=== PATIENT | male | born 1955 | race African-American/Black ===

== ENCOUNTER 2016-09-25 12:26 | Inpatient (IN) | payer OTHER ==
[2016-09-25 13:23] VITALS: BMI 28.7
--- NOTE | 2016-09-25 14:56 | HP ---
Admission [facility] - [facility] Chief Complaint: REHAB FOR ALCOHOL DEPENDENCE Allergies/Adverse Reactions: Allergies Allergy/AdvReac Type Severity Reaction Status Date / Time No Known Allergies Allergy Verified 09/25/16 14:49 History of Present Illness: 61 Y/O AA/MALE WITH A HX OF ALCOHOL DEPENDENCE SEEKING REHAB TX. PT STATES WAS D /C'D FROM [facility] YESTERDAY AND REFERRED HERE FOR AFTERCARE. Exam Limitations: No Limitations - Ebola screening Have you traveled outside of the country in the last 21 days: No Have you had contact with anyone from an Ebola affected area: No Have you been sick,other than usual withdrawal symptoms: No Do you have a fever: No - Review of Systems Constitutional: Changes in sleep EENT: reports: Blurred Vision (WEARS GLASSES), Dental Problems (LOOSE UPPER INCISSOR.) Respiratory: reports: No Symptoms reported Cardiac: reports: No Symptoms Reported GI: reports: No Symptoms Reported : reports: No Symptoms Reported Musculoskeletal: reports: Joint Pain (RIGHT KNEE PAIN(BRACE IN PLACE)), Muscle Pain Integumentary: reports: No Symptoms Reported Neuro: reports: Tremors, Unsteady Gait Endocrine: reports: No Symptoms Reported Hematology: reports: No Symptoms Reported Psychiatric: reports: Orientated x3 Other Systems: Reviewed and Negative Patient History - Patient Medical History Hx Anemia: No Hx Asthma: No Hx Chronic Obstructive Pulmonary Disease (COPD): No Hx Cardiac Disorders: No Hx Hypertension: Yes (ON LISINOPRIL 40 MG AND HTCZ 25 DAILY) Hx Hypercholesterolemia: Yes (BY HX) HX Cerebrovascular Accident: No Hx Seizures: No Hx Diabetes: No Hx Gastrointestinal Disorders: No Hx Genitourinary Disorders: No Hx Sexually Transmitted Disorders: No Hx Renal Disease (ESRD): No Hx Thyroid Disease: No Hx Human Immunodeficiency Virus (HIV): No (NEGATIVE HX) Hx Hepatitis C: No Hx Depression: No Hx Suicide Attempt: No (DENIES) Hx Bipolar Disorder: No Hx Schizophrenia: No - Patient Surgical History Past Surgical History: No Hx Neurologic Surgery: No Hx Cataract Extraction: No Hx Cardiac Surgery: No Hx Lung Surgery: No Hx Breast Surgery: No Hx Breast Biopsy: No Hx Abdominal Surgery: No Hx Appendectomy: No Hx Cholecystectomy: No Hx Genitourinary Surgery: No Hx Orthopedic Surgery: No Anesthesia Reaction: No - PPD History Previous Implant?: Yes ([facility]) Documented Results: Negative w/proof Implanted On Prior [facility] Admission?: No Date: 11/30/15 (AT [facility]) Results: NEGATIVE PPD to be Administered?: No - Reproductive History Patient is a Female of Child Bearing Age (11 -55 yrs old): No (MALE) - Smoking Cessation Smoking history: Current every day smoker Have you smoked in the past 12 months: Yes Aproximately how many cigarettes per day: 10 Hx Chewing Tobacco Use: No Initiated information on smoking cessation: Yes 'Breaking Loose' booklet given: 09/25/16 - Substance & Tx. History Hx Alcohol Use: Yes (VODKA) Hx Substance Use: No Substance Use Type: Alcohol Hx Substance Use Treatment: Yes - Substances Abused Alcohol Route: Oral Frequency: Daily Amount used: FIFTH Age of first use: 9 Date of Last Use: 09/19/16 Family Disease History - Family Disease History Family History: Denies Admission [facility] Exam [facility] - Vital Signs Vital Signs: Vital Signs - 24 hr 09/25/16 13:19 Temperature 98 F Pulse Rate 81 Respiratory 20 Rate Blood Pressure 174/96 - Physical General Appearance: Yes: No Apparent Distress, Anxious HEENTM: Yes: EOMI, Normocephalic, AIDEN, Pharynx Normal, Other (LOOSE TOOTH) Respiratory: Yes: Chest Non-Tender, Lungs Clear, Normal Breath Sounds, No Respiratory Distress Neck: Yes: Supple, Trachea in good position Breast: Yes: Breast Exam Deferred Cardiology: Yes: Regular Rhythm, Regular Rate, S1, S2 Abdominal: Yes: Normal Bowel Sounds, Non Tender, Soft Genitourinary: Yes: Other (N/C) Back: Yes: Within Normal Limits Musculoskeletal: Yes: full range of Motion, Gait Steady Extremities: Yes: Normal Range of Motion, Non-Tender Neurological: Yes: residential direct support professional II-XII NML intact, Fully Oriented, Alert Integumentary: Yes: Dry, Warm Lymphatic: Yes: Within Normal Limits - Diagnostic (1) Alcohol dependence with uncomplicated withdrawal Current Visit: Yes Status: Chronic (2) Hypertension Current Visit: Yes Status: Chronic Qualifiers: Hypertension type: essential hypertension Qualified Code(s): I10 - Essential (primary) hypertension (3) Cocaine dependence, uncomplicated Current Visit: Yes Status: Acute (4) Hypercholesterolemia Current Visit: Yes Status: Suspected Cleared for Admission [facility] Claeared for Rehab Admission: Yes [facility] Breath Alcohol Content Breath Alcohol Content: 0 Urine Drug Screen - Results Drug Screen Negative: No Urine Drug Screen Results: HELLEN-Cocaine, BZO-Benzodiazepines
[2016-09-25] MEDS ORDERED: MAGNESIUM HYDROX 2400MG/30ML ORAL SUSPENSION 30 ML CUP PO PRN (15:40)
[2016-09-25] MEDS ORDERED: IBUPROFEN 400 MG TABLET (FP) PO PRN (15:40)
[2016-09-25] MEDS ORDERED: hydrOXYzine PAMOATE 25 MG CAPSULE (FP) PO PRN (15:40)
[2016-09-25] MEDS ORDERED: LOPERAMIDE HCL 2 MG CAPSULE PO PRN (15:40)
[2016-09-25] MEDS ORDERED: P-EPHED 60MG/TRIPROLIDI 2.5MG TABLET PO PRN (15:40)
[2016-09-25] MEDS ORDERED: ACETAMINOPHEN 325 MG TABLET (FP) PO PRN (15:40)
[2016-09-25] MEDS ORDERED: guaiFENesin/D-METHORPHAN HB 10 ML UNIT-DOSE CUPS PO PRN (15:40)
[2016-09-25] MEDS ORDERED: MENTHOL/PHENOL 1 EACH UD MM PRN (15:40)
[2016-09-25] MEDS ORDERED: MAGNESIUM CITRATE 300 ML BOTTLE PO PRN (15:40)
[2016-09-25] MEDS ORDERED: MAG HYDROX/AL HYDROX/SIMETH 30 ML UNIT-DOSE CUP PO PRN (15:40)
[2016-09-25] MEDS ORDERED: NICOTINE POLACRILEX 2 MG GUM BUC PRN (15:40)
[2016-09-25] MEDS ORDERED: PATIENT'S OWN MEDICATION (NON-FORMULARY) (Lisinopril [Prinivil -] 40 MG) PO SCH (15:45)
[2016-09-25] MEDS ORDERED: LIDOCAINE VISCOUS 2% ORAL/TOP 20 ML UNIT-DOSE CUP MM PRN ×2 (15:55→18:51)
[2016-09-25 16:24] LABS: MCH 31.1 pg (25.7-33.7); MCHC 33.2 g/dl (32.0-35.9); MEAN CELL VOLUME 93.8 fl (80-96); MEAN PLT VOLUME 8.8 fl (7.5-11.1); PLATELET COUNT 292 K/MM3 (134-434); RDW 14.4 % (11.9-15.9); WHITE BLOOD COUNT 9.3 K/mm3 (4.0-10.0)
[2016-09-25 18:10] LABS: ALBUMIN 3.8 g/dl (3.4-5.0); ANION GAP 10 (8-16); BILIRUBIN,TOTAL 0.3 mg/dL (0.2-1.0); CALCIUM 8.6 mg/dL (8.5-10.1); CO2 26 mmol/L (21-32); CREATININE 1.2 mg/dL (0.7-1.3); GLUCOSE,RANDOM 155 mg/dL (74-106); SGOT/AST 15 U/L (15-37); TOT PROT 7.1 g/dl (6.4-8.2)
[2016-09-25 18:18] LABS: ALK PHOS 69 U/L (45-117); SGPT/ALT 18 U/L (12-78)
--- NOTE | 2016-09-25 18:51 | PN ---
[facility] Progress Note Note: received pharmacist call lidocaine 15 mg for oral
[2016-09-25] MEDS ORDERED: LISINOPRIL 20 MG TABLET (FP) PO SCH (19:30)
[2016-09-25] MEDS: HYDROCHLOROTHIAZIDE 25 MG TABLET (FP) PO SCH (19:41)
[2016-09-25] MEDS: NICOTINE 14 MG/24 HOURS TOPICAL PATCH TD SCH (19:42)
[2016-09-25] MEDS: LISINOPRIL 20 MG TABLET (FP) PO SCH (19:54)
[2016-09-25] MEDS: NAPROXEN 500 MG TABLET (FP) PO SCH (22:41)
[2016-09-25] MEDS: THIAMINE HCL 100 MG TABLET (FP) PO SCH (22:41)
--- NOTE | 2016-09-26 06:21 | HP ---
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 Smokes 10 cigarettes daily Psychiatric History: Denies history of previous psychiatric treatment Physical/Sexual Abuse/Trauma History: Denies history of physical, sexual abuse as well as DV relationship Additional Comment: Denies criminal history Vital Signs: Vital Signs - 24 hr 09/25/16 09/26/16 13:19 00:30 Temperature 98 F Pulse Rate 81 Respiratory 20 16 Rate Blood Pressure 174/96 Allergies/Adverse Reactions: Allergies Allergy/AdvReac Type Severity Reaction Status Date / Time No Known Allergies Allergy Verified 09/25/16 14:49 Date of last physical exam: 09/25/16 Concur with the findings of this exam: Yes - Substance Abuse/Tx History Hx Alcohol Use: Yes Hx Substance Use: No Substance Use Type: Alcohol (Started drinking alcohol at age 9, consumes a fifth of liquor daily. Last drink on 09/19/16) Hx Substance Use Treatment: Yes (recent inpt detox at [facility]. First inpt rehab) - Admission Criteria Previous failed treatment: No Poor recovery environment: Yes Comorbidities: Yes Lacks judgement: Yes Mental Status Exam - Mental Status Exam Alert and Oriented to: Time, Place, Person Cognitive Function: Fair Patient Appearance: Well Groomed Mood: Hopeful, Euthymic Patient Behavior: Cooperative Speech Pattern: Clear Voice Loudness: Normal Thought Process: Intact Thought Disorder: Not Present Hallucinations: Denies Suicidal Ideation: Denies Homicidal Ideation: Denies Insight/Judgement: Fair Sleep: Poorly Appetite: Good Muscle strength/Tone: Normal Gait/Station: Normal Psychiatric Findings - Problem List (Salome 1, 2,3) (1) Alcohol dependence with uncomplicated withdrawal Current Visit: Yes Status: Chronic (2) Nicotine dependence Current Visit: Yes Status: Acute (3) Alcohol-induced sleep disorder Current Visit: Yes Status: Acute (4) Hypertension Current Visit: Yes Status: Chronic Qualifiers: Hypertension type: essential hypertension Qualified Code(s): I10 - Essential (primary) hypertension (5) Hypercholesterolemia Current Visit: Yes Status: Suspected - Initial Treatment Plan Initial Treatment Plan: 1) Start Trazadone 100 mg po HS for insomnia. 2) Monitor progress
[2016-09-26] MEDS: HYDROCHLOROTHIAZIDE 25 MG TABLET (FP) PO SCH (09:41)
[2016-09-26] MEDS: NICOTINE 14 MG/24 HOURS TOPICAL PATCH TD SCH (09:41)
[2016-09-26] MEDS: LISINOPRIL 20 MG TABLET (FP) PO SCH (09:41)
[2016-09-26] MEDS: PRENATAL VITAMINS W/ FOLIC ACID TABLET (FP) PO SCH (09:41)
[2016-09-26] MEDS: NAPROXEN 500 MG TABLET (FP) PO SCH ×2 (09:41→21:30)
[2016-09-26 11:05] LABS: HIV 1 & 2 AB NEGATIVE; HIV 1 AGp24 NEGATIVE
[2016-09-26] MEDS: THIAMINE HCL 100 MG TABLET (FP) PO SCH (21:30)
[2016-09-26] MEDS: traZODone HCL 100 MG TABLET (FP) PO SCH (21:30)
--- NOTE | 2016-09-26 23:35 | EKG ---
Test Reason : Blood Pressure : / mmHG Vent. Rate : 077 BPM Atrial Rate : 077 BPM P-R Int : 156 ms QRS Dur : 082 ms QT Int : 402 ms P-R-T Axes : 067 038 056 degrees QTc Int : 454 ms NORMAL SINUS RHYTHM VOLTAGE CRITERIA FOR LEFT VENTRICULAR HYPERTROPHY ABNORMAL ECG NO PREVIOUS ECGS AVAILABLE Confirmed by MOE ROMERO, TONY ([id number]) on 09/26/2016 11:34:58 PM Referred By: Quin Gonzalez Confirmed By:TONY ROSA MD
[2016-09-27] MEDS: LISINOPRIL 20 MG TABLET (FP) PO SCH (09:45)
[2016-09-27] MEDS: NAPROXEN 500 MG TABLET (FP) PO SCH ×2 (09:45→22:11)
[2016-09-27] MEDS: PRENATAL VITAMINS W/ FOLIC ACID TABLET (FP) PO SCH (09:45)
[2016-09-27] MEDS: NICOTINE 14 MG/24 HOURS TOPICAL PATCH TD SCH (09:45)
[2016-09-27] MEDS: HYDROCHLOROTHIAZIDE 25 MG TABLET (FP) PO SCH (09:45)
[2016-09-27 20:36] LABS: URINE APPEARANCE CLEAR; URINE BILIRUBIN NEGATIVE (NEGATIVE); URINE BLOOD NEGATIVE (NEGATIVE); URINE COLOR YELLOW; URINE GLUCOSE (UA) 1+ (NEGATIVE); URINE KETONE NEGATIVE (NEGATIVE); URINE LEUK ESTERASE NEGATIVE (NEGATIVE); URINE NITRITE NEGATIVE (NEGATIVE); URINE PROTEIN NEGATIVE (NEGATIVE); URINE UROBILINOGEN NEGATIVE E.U./dl (0.2-1.0)
[2016-09-27] MEDS: THIAMINE HCL 100 MG TABLET (FP) PO SCH (22:10)
[2016-09-27] MEDS: diphenhydrAMINE HCL 50 MG CAPSULE PO PRN (22:10)
[2016-09-27] MEDS: traZODone HCL 100 MG TABLET (FP) PO SCH (22:11)
[2016-09-28] MEDS: NAPROXEN 500 MG TABLET (FP) PO SCH ×2 (10:25→22:10)
[2016-09-28] MEDS: LISINOPRIL 20 MG TABLET (FP) PO SCH (10:25)
[2016-09-28] MEDS: PRENATAL VITAMINS W/ FOLIC ACID TABLET (FP) PO SCH (10:25)
[2016-09-28] MEDS: HYDROCHLOROTHIAZIDE 25 MG TABLET (FP) PO SCH (10:25)
[2016-09-28] MEDS: NICOTINE 14 MG/24 HOURS TOPICAL PATCH TD SCH (10:25)
[2016-09-28] MEDS: diphenhydrAMINE HCL 50 MG CAPSULE PO PRN (22:06)
[2016-09-28] MEDS: traZODone HCL 100 MG TABLET (FP) PO SCH (22:09)
[2016-09-28] MEDS: THIAMINE HCL 100 MG TABLET (FP) PO SCH (22:10)
[2016-09-29 05:55] VITALS: TEMP 98.6
--- NOTE | 2016-09-29 09:23 | PN ---
Psychiatric Progress Note Vital Signs: Vital Signs Period Temp Pulse Resp BP Sys/Cantor Pulse Ox Last 24 Hr 98.6 F-98.6 F 81-91 18-18 146-153/89-92 Date of Session: 09/29/16 Chief Complaint:: AMA Discharge Note HPI: Patient addressing Alcohol Dependence comorbid with Nicotine Dependence and Alcohol-Induced Sleep Disorder ROS: HTN, Hyperlipidemiaa were medically managed Current Medications: Active Medications Generic Name Dose Route Start Last Admin Trade Name Freq PRN Reason Stop Dose Admin Acetaminophen 650 mg 09/25/16 15:40 Tylenol - PO Q4H PRN PAIN Al Hydroxide/Mg Hydroxide 30 ml 09/25/16 15:40 Mylanta Oral Suspension - PO Q6H PRN DYSPEPSIA Diphenhydramine HCl 50 mg 09/25/16 22:00 09/28/16 22:06 Benadryl - PO 50 mg HSMR1 PRN Administration INSOMNIA Eucalyptus/Menthol/Phenol/Sorbitol 1 each 09/25/16 15:40 Cepastat Lozenge - MM Q4H PRN SORE THROAT Guaifenesin 10 ml 09/25/16 15:40 Robitussin Dm - PO Q6H PRN COUGH Hydrochlorothiazide 25 mg 09/25/16 17:15 09/28/16 10:25 Hctz - PO 25 mg DAILY TESSA Administration Hydroxyzine Pamoate 25 mg 09/25/16 15:40 Vistaril - PO Q4H PRN AGITATION Lidocaine HCl 15 ml 09/25/16 18:51 Xylocaine 2% Viscous Oral - MM Q4H PRN ORAL PAIN/MOUTH SORES Lisinopril 40 mg 09/25/16 20:00 09/28/16 10:25 Prinivil PO 40 mg DAILY TESSA Administration Loperamide HCl 4 mg 09/25/16 15:40 Imodium - PO Q6H PRN DIARRHEA Magnesium Citrate 300 ml 09/25/16 15:40 Citroma - PO Q48H PRN CONSTIPATION Magnesium Hydroxide 30 ml 09/25/16 15:40 Milk Of Magnesia - PO DAILY PRN CONSTIPATION Naproxen 500 mg 09/25/16 22:00 09/28/16 22:10 Naprosyn - PO Not Given BID TESSA Nicotine 14 mg 09/25/16 15:45 09/28/16 10:25 Nicoderm Patch - TD 14 mg DAILY TESSA Administration Nicotine Polacrilex 2 mg 09/25/16 15:40 Nicorette Gum - BUC Q2H PRN NICOTINE REPLACEMENT RX Multivit/Folic Acid/Iron 1 tab 09/26/16 10:00 09/28/16 10:25 Vitamins ([facility]) - PO 1 tab DAILY TESSA Administration Pseudoephedrine/Triprolidine 1 combo 09/25/16 15:40 Actifed - PO TID PRN NASAL CONGESTION Thiamine HCl 100 mg 09/25/16 22:00 09/28/16 22:10 Vitamin B1 - PO Not Given HS TESSA Trazodone HCl 100 mg 09/26/16 22:00 09/28/16 22:09 Desyrel - PO Not Given HS TESSA Current Side Effect: No Lab tests ordered: Yes Lab tests reviewed: Yes Provider note:: Patient requests to leave against medical advice citing family emergency. Reports that he received news that his father is gravely ill in [place] and he has to fly there today. Told expert medical writer that when he comes back, he will check in here to complete his rehab. He is stable for discharge today against medical advice Total face to face time:: 25 Mental Status Exam - Mental Status Exam Alert and Oriented to: Time, Place, Person Cognitive Function: Fair Patient Appearance: Well Groomed Mood: Hopeful, Euthymic Affect: Appropriate Patient Behavior: Cooperative Speech Pattern: Clear Voice Loudness: Normal Thought Process: Intact Thought Disorder: Not Present Hallucinations: Denies Suicidal Ideation: Denies Homicidal Ideation: Denies Insight/Judgement: Poor Sleep: Fair Appetite: Good Muscle strength/Tone: Normal Gait/Station: Normal Psychiatric Treatment Plan - Problem List (1) Alcohol dependence with uncomplicated withdrawal Current Visit: Yes (2) Nicotine dependence Current Visit: Yes (3) Alcohol-induced sleep disorder Current Visit: Yes (4) Hypertension Current Visit: Yes Qualifiers: Hypertension type: essential hypertension Qualified Code(s): I10 - Essential (primary) hypertension (5) Hypercholesterolemia Current Visit: Yes Initial treatment plan: Patient is leaving [facility]
[2016-09-29] MEDS: HYDROCHLOROTHIAZIDE 25 MG TABLET (FP) PO SCH (09:46)
[2016-09-29] MEDS: NAPROXEN 500 MG TABLET (FP) PO SCH (09:46)
[2016-09-29] MEDS: LISINOPRIL 20 MG TABLET (FP) PO SCH (09:46)
[2016-09-29] MEDS ORDERED: PT OWN MED DRAWER 7, Y5N ONE (09:49)
[2016-09-29 10:40] VITALS: BP 128/82; PULSE 88
== END 2016-09-29 09:50 | disposition left against medical advice (07) | DRG 770 ==
LOC: YASAS 12:26 → Y3W 16:22
PROVIDERS: ADMIT Psychiatry & Neurology Psychiatry; ATTEND Psychiatry & Neurology Psychiatry
PROC: HZ42ZZZ Group Counseling for Substance Abuse Treatment, Cognitive-Behavioral (ICD-10-PCS; principal; 2016-09-29)
DX: F10.230 Alcohol dependence with withdrawal, uncomplicated (principal); F17.210 Nicotine dependence, cigarettes, uncomplicated; F10.282 Alcohol dependence with alcohol-induced sleep disorder; I10 Essential (primary) hypertension; E78.00 Pure hypercholesterolemia, unspecified
CPT/HCPCS: 36415; 80053; 81003; 85027; 85660; 86593; 87389; 93005; 93010

== ENCOUNTER 2017-01-12 11:15 | Inpatient (IN) | payer OTHER ==
[2017-01-12 17:53] VITALS: BMI 26.1
--- NOTE | 2017-01-12 19:06 | HP ---
COWS - Scale Resting Pulse: 0= NE 80 or Below Sweatin= Chills/Flushing Restless Observation: 3= Extraneous Movement Pupil Size: 0= Normal to Room Light Bone or Joint Aches: 2= Severe Diffuse Aches Runny Nose/ Eye Tearin= Nasal Congestion GI Upset > 30mins: 1= Stomach Cramp Tremor Observation: 2= Slight Tremor Visible Yawning Observation: 1= 1-2x During Session Anxiety or Irritability: 2=Irritable/Anxious Goose Flesh Skin: 0=Smooth Skin COWS Score: 13 Admission ROS S - [facility] Chief Complaint: WITHDRAWAL SX Allergies/Adverse Reactions: Allergies Allergy/AdvReac Type Severity Reaction Status Date / Time No Known Allergies Allergy Verified 01/12/17 18:32 History of Present Illness: 61 YEARS OLD MALE WITH LONG HISTORY OF OPIOID COCAINE NICOTINE DEPENDENCE, HAS HYPERTENSION, DENIES MENTAL ILLNESS IS ADMITTED TO DETOX Exam Limitations: No Limitations - Ebola screening Have you traveled outside of the country in the last 21 days: No Have you had contact with anyone from an Ebola affected area: No Have you been sick,other than usual withdrawal symptoms: No Do you have a fever: No - Review of Systems Constitutional: Chills, Changes in sleep, Weight Stable EENT: reports: No Symptoms Reported Respiratory: reports: No Symptoms reported Cardiac: reports: No Symptoms Reported GI: reports: Nausea, Poor Fluid Intake, Abdominal cramping : reports: No Symptoms Reported Musculoskeletal: reports: Back Pain, Joint Pain, Muscle Pain, Neck Pain Integumentary: reports: No Symptoms Reported Neuro: reports: Tremors Endocrine: reports: No Symptoms Reported Hematology: reports: No Symptoms Reported Psychiatric: reports: Judgement Intact, Mood/Affect Appropiate, Orientated x3 Other Systems: Reviewed and Negative Patient History - Patient Medical History Hx Anemia: No Hx Asthma: No Hx Chronic Obstructive Pulmonary Disease (COPD): No Hx Cancer: No Hx Cardiac Disorders: No Hx Congestive Heart Failure: No Hx Hypertension: Yes (ON LISINOPRIL 40 MG AND HTCZ 25 DAILY) Hx Hypercholesterolemia: No (BY HX) Hx Pacemaker: No HX Cerebrovascular Accident: No Hx Seizures: No Hx Dementia: No Hx Diabetes: No Hx Gastrointestinal Disorders: No Hx Liver Disease: No Hx Genitourinary Disorders: No Hx Sexually Transmitted Disorders: No Hx Renal Disease (ESRD): No Hx Thyroid Disease: No Hx Human Immunodeficiency Virus (HIV): No (NEGATIVE HX) Hx Hepatitis C: No Hx Depression: Yes (PROZAC) Hx Suicide Attempt: No (DENIES) Hx Bipolar Disorder: No Hx Schizophrenia: No - Patient Surgical History Past Surgical History: No Hx Neurologic Surgery: No Hx Cataract Extraction: No Hx Cardiac Surgery: No Hx Lung Surgery: No Hx Breast Surgery: No Hx Breast Biopsy: No Hx Abdominal Surgery: No Hx Appendectomy: No Hx Cholecystectomy: No Hx Genitourinary Surgery: No Hx Orthopedic Surgery: No - PPD History Previous Implant?: Yes Documented Results: Negative w/proof Implanted On Prior [facility] Admission?: No Date: 11/30/15 Results: NEGATIVE PPD to be Administered?: Yes - Smoking Cessation Smoking history: Current every day smoker Have you smoked in the past 12 months: Yes Aproximately how many cigarettes per day: 20 Cigars Per Day: 0 Hx Chewing Tobacco Use: No Initiated information on smoking cessation: Yes 'Breaking Loose' booklet given: 01/12/17 - Substance & Tx. History Hx Alcohol Use: No Hx Substance Use: Yes Substance Use Type: Cocaine, Opiates Hx Substance Use Treatment: Yes - Substances Abused Percocets Route: Oral Frequency: Daily Amount used: 60mg Age of first use: 50 Date of Last Use: 01/12/17 Family Disease History - Family Disease History Family History: Unable to Obtain (PATIENT REFUSED TO ANSWER) Admission Physical Exam [facility] - Vital Signs Vital Signs: Vital Signs - 24 hr 01/12/17 17:50 Temperature 97.2 F L Pulse Rate 75 Respiratory 20 Rate Blood Pressure 148/82 - Physical General Appearance: Yes: Nourished, Appropriately Dressed, Mild Distress, Tremorous, Irritable, Sweating, Anxious HEENTM: Yes: Hearing grossly Normal, Normal ENT Inspection, Normocephalic, Normal Voice Respiratory: Yes: Chest Non-Tender, Lungs Clear, Normal Breath Sounds, No Respiratory Distress, No Accessory Muscle Use Neck: Yes: Supple, Trachea in good position Breast: Yes: Breasts Symetrical Cardiology: Yes: Regular Rhythm, Regular Rate, S1, S2 Abdominal: Yes: Non Tender, Soft Genitourinary: Yes: Within Normal Limits Back: Yes: Normal Inspection Musculoskeletal: Yes: full range of Motion, Gait Steady, Back pain, Muscle Pain Extremities: Yes: Normal Inspection, Normal Range of Motion, Non-Tender, Tremors Neurological: Yes: Fully Oriented, Alert, Motor Strength 5/5, Normal Response, Depressed Affect Integumentary: Yes: Warm Lymphatic: Yes: Within Normal Limits - Diagnostic (1) Cocaine dependence, uncomplicated Current Visit: Yes Status: Chronic (2) Nicotine dependence Current Visit: Yes Status: Acute Qualifiers: Nicotine product type: cigarettes Substance use status: in withdrawal Qualified Code(s): F17.213 - Nicotine dependence, cigarettes, with withdrawal (3) Hypertension Current Visit: Yes Status: Chronic Qualifiers: Hypertension type: essential hypertension Qualified Code(s): I10 - Essential (primary) hypertension (4) Depression (emotion) Current Visit: Yes Status: Suspected Qualifiers: Depression Type: dysthymia Qualified Code(s): F34.1 - Dysthymic disorder Comment: LIZETT Cleared for Admission [facility] - Detox or Rehab [facility] Level of Care: Medically Managed Detox Regimen/Protocol: Methadone [facility] Breath Alcohol Content Breath Alcohol Content: 0 Urine Drug Screen - Results Drug Screen Negative: No Urine Drug Screen Results: HELLEN-Cocaine, OPI-Opiates
[2017-01-12] MEDS ORDERED: IBUPROFEN 400 MG TABLET (FP) PO PRN (19:08)
[2017-01-12] MEDS ORDERED: diphenhydrAMINE HCL 50 MG CAPSULE PO PRN (19:08)
[2017-01-12] MEDS ORDERED: MAG HYDROX/AL HYDROX/SIMETH 30 ML UNIT-DOSE CUP PO PRN (19:08)
[2017-01-12] MEDS ORDERED: LOPERAMIDE HCL 2 MG CAPSULE PO PRN (19:08)
[2017-01-12] MEDS ORDERED: MAGNESIUM HYDROX 2400MG/30ML ORAL SUSPENSION 30 ML CUP PO PRN (19:08)
[2017-01-12] MEDS ORDERED: ACETAMINOPHEN 325 MG TABLET (FP) PO PRN (19:08)
[2017-01-12] MEDS ORDERED: MENTHOL/PHENOL 1 EACH UD MM PRN (19:08)
[2017-01-12] MEDS ORDERED: MAGNESIUM CITRATE 300 ML BOTTLE PO PRN (19:08)
[2017-01-12] MEDS ORDERED: guaiFENesin/D-METHORPHAN HB 10 ML UNIT-DOSE CUPS PO PRN (19:08)
[2017-01-12] MEDS ORDERED: P-EPHED 60MG/TRIPROLIDI 2.5MG TABLET PO PRN (19:08)
[2017-01-12] MEDS ORDERED: METHADONE HCL 10 MG TABLET (FOR DETOX USE ONLY) PO ONE ×2 (19:08→23:00)
[2017-01-12] MEDS ORDERED: METHADONE HCL 10 MG TABLET (FOR DETOX USE ONLY) ONE (21:21)
[2017-01-12] MEDS: diazePAM 5 MG TABLET PO PRN (21:40)
[2017-01-12] MEDS: THIAMINE HCL 100 MG TABLET (FP) PO SCH (21:40)
[2017-01-12] MEDS: NICOTINE POLACRILEX 4 MG GUM BC PRN (21:45)
[2017-01-12 23:52] LABS: URINE APPEARANCE CLEAR; URINE BILIRUBIN NEGATIVE (NEGATIVE); URINE BLOOD NEGATIVE (NEGATIVE); URINE COLOR YELLOW; URINE GLUCOSE (UA) NEGATIVE (NEGATIVE); URINE KETONE NEGATIVE (NEGATIVE); URINE LEUK ESTERASE NEGATIVE (NEGATIVE); URINE NITRITE NEGATIVE (NEGATIVE); URINE PROTEIN NEGATIVE (NEGATIVE); URINE UROBILINOGEN NEGATIVE E.U./dl (0.2-1.0)
[2017-01-13 09:59] LABS: MCH 32.7 pg (25.7-33.7); MEAN CELL VOLUME 96.2 fl (80-96); MEAN PLT VOLUME 9.3 fl (7.5-11.1); PLATELET COUNT 224 K/MM3 (134-434)
[2017-01-13] MEDS ORDERED: METHADONE HCL 10 MG TABLET (FOR DETOX USE ONLY) PO ONE (10:00)
--- NOTE | 2017-01-13 10:25 | CONSULT ---
[facility] Psychiatric Consult - Data Date of interview: 01/13/17 Admission source: [facility] Identifying data: Readmission to [facility] for this 61 y/o AA male seeking detox treatment for opiate and cocaine dependence.Patient is ,a father of two,domiciled,retired and supported on his pension benefits. Substance Abuse History: - Smoking Cessation. Smoking history: Current every day smoker. Have you smoked in the past 12 months: Yes. Aproximately how many cigarettes per day: 20. Cigars Per Day: 0. Hx Chewing Tobacco Use: No. Initiated information on smoking cessation: Yes. 'Breaking Loose' booklet given : 01/12/17. - Substance & Tx. History. Hx Alcohol Use: No. Hx Substance Use: Yes. Substance Use Type: Cocaine, Opiates. Hx Substance Use Treatment: Yes. - Substances Abused. Percocets. Route: Oral. Frequency: Daily. Amount used: 60mg. Age of first use: 50. Date of Last Use: 01/12/17. Confirmed by patient. Medical History: Hypertension,dyslipidemia,lower back pain and a history of right knee replacement. Psychiatric History: No history of psychiatric hospitalizations.Patient reports that he was seeing a private psychiatrist to address issue of anxiety.Prescribed klonopin and xanax.Mr Torres denies history of suicide attempts. Physical/Sexual Abuse/Trauma History: Patient denies. Additional Comment: Urine Drug Screen Results: HELLEN-Cocaine, OPI-Opiates.Noted. Mental Status Exam - Mental Status Exam Alert and Oriented to: Time, Place, Person Cognitive Function: Good Patient Appearance: Well Groomed Mood: Hopeful, Euthymic Affect: Appropriate, Normal Range Patient Behavior: Appropriate, Cooperative Speech Pattern: Clear, Appropriate Voice Loudness: Normal Thought Process: Goal Oriented Thought Disorder: Not Present Hallucinations: Denies Suicidal Ideation: Denies Homicidal Ideation: Denies Insight/Judgement: Poor Sleep: Well Appetite: Good Muscle strength/Tone: Normal Gait/Station: Normal Psychiatric Findings - Problem List ([place] 1, 2,3) (1) Opioid dependence with withdrawal Current Visit: Yes Status: Acute (2) Cocaine dependence, uncomplicated Current Visit: Yes Status: Acute (3) Nicotine dependence Current Visit: Yes Status: Acute Qualifiers: Nicotine product type: cigarettes Substance use status: in withdrawal Qualified Code(s): F17.213 - Nicotine dependence, cigarettes, with withdrawal (4) Substance induced mood disorder Current Visit: Yes Status: Acute (5) Hypertension Current Visit: Yes Status: Chronic Qualifiers: Hypertension type: essential hypertension Qualified Code(s): I10 - Essential (primary) hypertension (6) Hypercholesterolemia Current Visit: Yes Status: Chronic - Initial Treatment Plan Initial Treatment Plan: Psychoeducation.Detoxification.Observation.
[2017-01-13 10:33] LABS: ALK PHOS 67 U/L (45-117); BILIRUBIN,TOTAL 0.5 mg/dL (0.2-1.0); CALCIUM 8.8 mg/dL (8.5-10.1); CO2 25 mmol/L (21-32); COCKROFT - GAULT 62.02; CREATININE 1.3 mg/dL (0.7-1.3); GLUCOSE,RANDOM 136 mg/dL (74-106); SGOT/AST 19 U/L (15-37); SGPT/ALT 21 U/L (12-78); TOT PROT 7.3 g/dl (6.4-8.2)
[2017-01-13] MEDS: PRENATAL VITAMINS W/ FOLIC ACID TABLET (FP) PO SCH (10:41)
[2017-01-13] MEDS: LISINOPRIL 20 MG TABLET (FP) PO SCH (10:41)
[2017-01-13] MEDS: HYDROCHLOROTHIAZIDE 25 MG TABLET (FP) PO SCH (10:42)
[2017-01-13] MEDS: NICOTINE 21 MG/24 HOURS TOPICAL PATCH TD SCH (10:50)
[2017-01-13] MEDS: diazePAM 5 MG TABLET PO PRN ×2 (10:51→22:14)
--- NOTE | 2017-01-13 12:19 | EKG ---
Test Reason : Blood Pressure : / mmHG Vent. Rate : 063 BPM Atrial Rate : 063 BPM P-R Int : 140 ms QRS Dur : 080 ms QT Int : 416 ms P-R-T Axes : 068 045 057 degrees QTc Int : 425 ms NORMAL SINUS RHYTHM MODERATE VOLTAGE CRITERIA FOR LVH, MAY BE NORMAL VARIANT BORDERLINE ECG WHEN COMPARED WITH ECG OF 25-SEP-2016 23:11, NO SIGNIFICANT CHANGE WAS FOUND Confirmed by MD JESSE, TRAM ([id number]) on 01/13/2017 12:18:59 PM Referred By: Confirmed By:TRAM MOLINA MD
--- NOTE | 2017-01-13 13:12 | PN ---
[facility] COWS - Scale Resting Pulse: 0= MI 80 or Below Sweatin=Flushed/Facial Moisture Restless Observation: 3= Extraneous Movement Pupil Size: 1= Pupils >than Normal Bone or Joint Aches: 2= Severe Diffuse Aches Runny Nose/ Eye Tearin= Runny Nose/Eyes GI Upset > 30mins: 3= Vomiting/Diarrhea Tremor Observation of Outstretched Hands: 2= Slight Tremor Visible Yawning Observation: 1= 1-2x During Session Anxiety or Irritability: 2=Irritable/Anxious Goose Flesh Skin: 0=Smooth Skin COWS Score: 18 BHS Progress Note (SOAP) Subjective: ALERT,IRRITABLE,ANXIOUS,INTERRUPTED SLEEP,TREMOR,PAIN IN THE BODY AND BACK Objective: 01/13/17 13:10 Vital Signs Temperature 97.3 F L 01/13/17 10:00 Pulse Rate 67 01/13/17 10:00 Respiratory Rate 18 01/13/17 10:00 Blood Pressure 150/80 01/13/17 10:00 O2 Sat by Pulse Oximetry (%) EKG NSR,LVH NO CHEST PAIN,NO SOB,NO DIZZINESS Laboratory Last Values WBC 8.0 K/mm3 (4.0-10.0) 01/13/17 06:00 RBC 3.99 M/mm3 (4.00-5.60) L 01/13/17 06:00 Hgb 13.0 GM/dL (11.7-16.9) 01/13/17 06:00 Hct 38.4 % (35.4-49) 01/13/17 06:00 MCV 96.2 fl (80-96) H 01/13/17 06:00 MCHC 34.0 g/dl (32.0-35.9) 01/13/17 06:00 RDW 14.0 % (11.9-15.9) 01/13/17 06:00 Plt Count 224 K/MM3 (134-434) D 01/13/17 06:00 MPV 9.3 fl (7.5-11.1) 01/13/17 06:00 Sodium 142 mmol/L (136-145) 01/13/17 06:00 Potassium 3.9 mmol/L (3.5-5.1) 01/13/17 06:00 Chloride 108 mmol/L (98-107) H 01/13/17 06:00 Carbon Dioxide 25 mmol/L (21-32) 01/13/17 06:00 Anion Gap Y 01/13/17 06:00 BUN 17 mg/dL (7-18) 01/13/17 06:00 Creatinine 1.3 mg/dL (0.7-1.3) 01/13/17 06:00 Creat Clearance w eGFR 56.12 (>60) 01/13/17 06:00 Random Glucose 136 mg/dL (74-106) H 01/13/17 06:00 Calcium 8.8 mg/dL (8.5-10.1) 01/13/17 06:00 Total Bilirubin 0.5 mg/dL (0.2-1.0) D 01/13/17 06:00 AST 19 U/L (15-37) D 01/13/17 06:00 ALT 21 U/L (12-78) 01/13/17 06:00 Alkaline Phosphatase 67 U/L (45-117) 01/13/17 06:00 Total Protein 7.3 g/dl (6.4-8.2) 01/13/17 06:00 Albumin 4.0 g/dl (3.4-5.0) 01/13/17 06:00 Urine Color Yellow 01/12/17 23:40 Urine Appearance Clear 01/12/17 23:40 Urine pH 5.0 (5.0-8.0) 01/12/17 23:40 Ur Specific [place] 1.025 (1.005-1.025) 01/12/17 23:40 Urine Protein Negative (NEGATIVE) 01/12/17 23:40 Urine Glucose (UA) Negative (NEGATIVE) 01/12/17 23:40 Urine Ketones Negative (NEGATIVE) 01/12/17 23:40 Urine Blood Negative (NEGATIVE) 01/12/17 23:40 Urine Nitrite Negative (NEGATIVE) 01/12/17 23:40 Urine Bilirubin Negative (NEGATIVE) 01/12/17 23:40 Urine Urobilinogen Negative E.U./dl (0.2-1.0) 01/12/17 23:40 Ur Leukocyte Esterase Negative (NEGATIVE) 01/12/17 23:40 RPR Titer Nonreactive (NONREACTIVE) 01/13/17 06:00 Assessment: 01/13/17 13:11 WITHDRAWAL SYMPTOM Plan: CONTINUE DETOX
[2017-01-13] MEDS: THIAMINE HCL 100 MG TABLET (FP) PO SCH (22:14)
[2017-01-14] MEDS: NICOTINE POLACRILEX 4 MG GUM BC PRN ×3 (04:46→11:19)
[2017-01-14] MEDS: diazePAM 5 MG TABLET PO PRN ×3 (05:05→22:11)
[2017-01-14] MEDS ORDERED: METHADONE HCL 5 MG TABLET (FOR DETOX USE ONLY) PO ONE (10:00)
[2017-01-14] MEDS: LISINOPRIL 20 MG TABLET (FP) PO SCH (11:00)
[2017-01-14] MEDS: HYDROCHLOROTHIAZIDE 25 MG TABLET (FP) PO SCH (11:00)
[2017-01-14] MEDS: PRENATAL VITAMINS W/ FOLIC ACID TABLET (FP) PO SCH (11:00)
[2017-01-14] MEDS: NICOTINE 21 MG/24 HOURS TOPICAL PATCH TD SCH (11:19)
--- NOTE | 2017-01-14 12:12 | PN ---
[facility] CIWA - CIWA Score Nausea/Vomitin Muscle Tremors: 3 Anxiety: 2 Agitation: 2 Paroxysmal Sweats: 1-Minimal Palms Moist Orientation: 0-Oriented Tacttile Disturbances: 1-Very Mild Itch/Numbness Auditory Disturbances: 1-Very Mild Visual Disturbances: 1-Very Mild Sensitivity Headache: 2-Mild CIWA-Ar Total Score: 16 [facility] COWS - Scale Resting Pulse: 0= [place] 80 or Below Sweatin= Chills/Flushing Restless Observation: 3= Extraneous Movement Pupil Size: 1= Pupils >than Normal Bone or Joint Aches: 2= Severe Diffuse Aches Runny Nose/ Eye Tearin= Runny Nose/Eyes GI Upset > 30mins: 2= Nausea/Diarrhea Tremor Observation of Outstretched Hands: 2= Slight Tremor Visible Yawning Observation: 1= 1-2x During Session Anxiety or Irritability: 2=Irritable/Anxious Goose Flesh Skin: 0=Smooth Skin COWS Score: 16 [facility] Progress Note (SOAP) Subjective: ALERT,IRRITABLE,ANXIOUS,INTERRUPTED SLEEP,TREMOR,PAIN IN THE BODY AND BACK Objective: 01/14/17 12:10 Vital Signs Temperature 98.1 F 01/14/17 09:43 Pulse Rate 78 01/14/17 09:43 Respiratory Rate 18 01/14/17 09:43 Blood Pressure 161/87 01/14/17 09:43 O2 Sat by Pulse Oximetry (%) Laboratory Last Values WBC 8.0 K/mm3 (4.0-10.0) 01/13/17 06:00 RBC 3.99 M/mm3 (4.00-5.60) L 01/13/17 06:00 Hgb 13.0 GM/dL (11.7-16.9) 01/13/17 06:00 Hct 38.4 % (35.4-49) 01/13/17 06:00 MCV 96.2 fl (80-96) H 01/13/17 06:00 MCHC 34.0 g/dl (32.0-35.9) 01/13/17 06:00 RDW 14.0 % (11.9-15.9) 01/13/17 06:00 Plt Count 224 K/MM3 (134-434) D 01/13/17 06:00 MPV 9.3 fl (7.5-11.1) 01/13/17 06:00 Sodium 142 mmol/L (136-145) 01/13/17 06:00 Potassium 3.9 mmol/L (3.5-5.1) 01/13/17 06:00 Chloride 108 mmol/L (98-107) H 01/13/17 06:00 Carbon Dioxide 25 mmol/L (21-32) 01/13/17 06:00 Anion Gap Y 01/13/17 06:00 BUN 17 mg/dL (7-18) 01/13/17 06:00 Creatinine 1.3 mg/dL (0.7-1.3) 01/13/17 06:00 Creat Clearance w eGFR 56.12 (>60) 01/13/17 06:00 Random Glucose 136 mg/dL (74-106) H 01/13/17 06:00 Calcium 8.8 mg/dL (8.5-10.1) 01/13/17 06:00 Total Bilirubin 0.5 mg/dL (0.2-1.0) D 01/13/17 06:00 AST 19 U/L (15-37) D 01/13/17 06:00 ALT 21 U/L (12-78) 01/13/17 06:00 Alkaline Phosphatase 67 U/L (45-117) 01/13/17 06:00 Total Protein 7.3 g/dl (6.4-8.2) 01/13/17 06:00 Albumin 4.0 g/dl (3.4-5.0) 01/13/17 06:00 Urine Color Yellow 01/12/17 23:40 Urine Appearance Clear 01/12/17 23:40 Urine pH 5.0 (5.0-8.0) 01/12/17 23:40 Ur Specific [place] 1.025 (1.005-1.025) 01/12/17 23:40 Urine Protein Negative (NEGATIVE) 01/12/17 23:40 Urine Glucose (UA) Negative (NEGATIVE) 01/12/17 23:40 Urine Ketones Negative (NEGATIVE) 01/12/17 23:40 Urine Blood Negative (NEGATIVE) 01/12/17 23:40 Urine Nitrite Negative (NEGATIVE) 01/12/17 23:40 Urine Bilirubin Negative (NEGATIVE) 01/12/17 23:40 Urine Urobilinogen Negative E.U./dl (0.2-1.0) 01/12/17 23:40 Ur Leukocyte Esterase Negative (NEGATIVE) 01/12/17 23:40 RPR Titer Nonreactive (NONREACTIVE) 01/13/17 06:00 Assessment: 01/14/17 12:11 WITHDRAWAL SYMPTOM Plan: CONTINUE DETOX,FASTING GLUCOSE IN AM,INITIAL GLUCOSE IS 136
[2017-01-14] MEDS: THIAMINE HCL 100 MG TABLET (FP) PO SCH (22:11)
[2017-01-15] MEDS ORDERED: METHADONE HCL 5 MG TABLET (FOR DETOX USE ONLY) PO ONE (10:00)
[2017-01-15] MEDS ORDERED: METHADONE HCL 10 MG TABLET (FOR DETOX USE ONLY) PO ONE (10:00)
--- NOTE | 2017-01-15 10:24 | PN ---
[facility] Progress Note (SOAP) Subjective: tired feeling better Objective: 01/15/17 10:23 Vital Signs Temperature 97.9 F 01/15/17 09:57 Pulse Rate 92 H 01/15/17 09:57 Respiratory Rate 18 01/15/17 09:57 Blood Pressure 160/61 01/15/17 09:57 O2 Sat by Pulse Oximetry (%) awake/alert ambulating no acute distress Assessment: 01/15/17 10:23 withdrawal sx Plan: continue detox increase fluids d/c in am
[2017-01-15] MEDS: PRENATAL VITAMINS W/ FOLIC ACID TABLET (FP) PO SCH (11:51)
[2017-01-15] MEDS: LISINOPRIL 20 MG TABLET (FP) PO SCH (11:52)
[2017-01-15] MEDS: HYDROCHLOROTHIAZIDE 25 MG TABLET (FP) PO SCH (11:52)
[2017-01-15] MEDS: NICOTINE 21 MG/24 HOURS TOPICAL PATCH TD SCH (11:56)
[2017-01-15] MEDS: NICOTINE POLACRILEX 4 MG GUM BC PRN ×2 (16:47→23:41)
[2017-01-15] MEDS: THIAMINE HCL 100 MG TABLET (FP) PO SCH (22:07)
[2017-01-16] MEDS ORDERED: METHADONE HCL 5 MG TABLET (FOR DETOX USE ONLY) PO ONE (06:00)
--- NOTE | 2017-01-16 08:40 | DS ---
[facility] Detox Discharge Summary Admission Date: 01/12/17 Discharge Date: 01/16/17 - History Present History: Alcohol Dependence - Physical Exam Results Vital Signs: Vital Signs Temperature 97.8 F 01/16/17 06:29 Pulse Rate 63 01/16/17 06:29 Respiratory Rate 16 01/16/17 06:29 Blood Pressure 148/85 01/16/17 06:29 O2 Sat by Pulse Oximetry (%) - Treatment Hospital Course: Detox Protocol Followed, Detoxed Safely, Responded well, Discharged Condition Good - Medication Discharge Medications: Ambulatory Orders Hydrochlorothiazide 25 mg PO DAILY 09/25/16 Lisinopril [Prinivil -] 40 mg PO DAILY 09/25/16 - Diagnosis (1) Cocaine dependence, uncomplicated Current Visit: Yes Status: Chronic (2) Nicotine dependence Current Visit: Yes Status: Chronic Qualifiers: Nicotine product type: cigarettes Substance use status: in withdrawal Qualified Code(s): F17.213 - Nicotine dependence, cigarettes, with withdrawal (3) Opioid dependence with withdrawal Current Visit: Yes Status: Acute (4) Hypercholesterolemia Current Visit: Yes Status: Chronic (5) Hypertension Current Visit: Yes Status: Chronic Qualifiers: Hypertension type: essential hypertension Qualified Code(s): I10 - Essential (primary) hypertension (6) Depression (emotion) Current Visit: Yes Status: Chronic Qualifiers: Depression Type: dysthymia Qualified Code(s): F34.1 - Dysthymic disorder - AMA Did Patient Leave Against Medical Advice: No
[2017-01-16] MEDS ORDERED: METHADONE HCL 10 MG TABLET (FOR DETOX USE ONLY) PO ONE (10:00)
[2017-01-16] MEDS: HYDROCHLOROTHIAZIDE 25 MG TABLET (FP) PO SCH (10:20)
[2017-01-16] MEDS: LISINOPRIL 20 MG TABLET (FP) PO SCH (10:20)
[2017-01-16] MEDS: PRENATAL VITAMINS W/ FOLIC ACID TABLET (FP) PO SCH (10:20)
[2017-01-16 10:32] VITALS: BP 146/83; PULSE 83; TEMP 97.9
[2017-01-16] MEDS: NICOTINE 21 MG/24 HOURS TOPICAL PATCH TD SCH (11:14)
[2017-01-16] MEDS: NICOTINE POLACRILEX 4 MG GUM BC PRN (11:15)
[2017-01-17] MEDS ORDERED: METHADONE HCL 5 MG TABLET (FOR DETOX USE ONLY) PO ONE (06:00)
== END 2017-01-16 13:15 | disposition other institution (70) | DRG 773 ==
LOC: YASAS 11:15 → Y6N 18:44
PROVIDERS: ADMIT Internal Medicine; ATTEND Internal Medicine
PROC: HZ2ZZZZ Detoxification Services for Substance Abuse Treatment (ICD-10-PCS; principal; 2017-01-12)
DX: F11.23 Opioid dependence with withdrawal (principal); F14.20 Cocaine dependence, uncomplicated; F17.213 Nicotine dependence, cigarettes, with withdrawal; F19.24 Other psychoactive substance dependence with psychoactive substance-induced mood disorder; F34.1 Dysthymic disorder; E78.00 Pure hypercholesterolemia, unspecified; I10 Essential (primary) hypertension
CPT/HCPCS: 36415; 80053; 81003; 82947; 85027; 86593; 93005; 93010

== ENCOUNTER 2017-01-16 13:44 | Inpatient (IN) | payer OTHER ==
[2017-01-16] MEDS ORDERED: MAGNESIUM CITRATE 300 ML BOTTLE PO PRN (16:21)
[2017-01-16] MEDS ORDERED: IBUPROFEN 400 MG TABLET (FP) PO PRN (16:21)
[2017-01-16] MEDS ORDERED: MAG HYDROX/AL HYDROX/SIMETH 30 ML UNIT-DOSE CUP PO PRN (16:21)
[2017-01-16] MEDS ORDERED: LOPERAMIDE HCL 2 MG CAPSULE PO PRN (16:21)
[2017-01-16] MEDS ORDERED: ACETAMINOPHEN 325 MG TABLET (FP) PO PRN (16:21)
[2017-01-16] MEDS ORDERED: P-EPHED 60MG/TRIPROLIDI 2.5MG TABLET PO PRN (16:21)
[2017-01-16] MEDS ORDERED: guaiFENesin/D-METHORPHAN HB 10 ML UNIT-DOSE CUPS PO PRN (16:21)
[2017-01-16] MEDS ORDERED: MAGNESIUM HYDROX 2400MG/30ML ORAL SUSPENSION 30 ML CUP PO PRN (16:21)
[2017-01-16] MEDS ORDERED: MENTHOL/PHENOL 1 EACH UD MM PRN (16:21)
[2017-01-16] MEDS ORDERED: diphenhydrAMINE HCL 50 MG CAPSULE PO PRN (16:21)
--- NOTE | 2017-01-16 16:21 | HP ---
[facility] Rehab Assess/Revision - Admission History Admitted to Rehab from: [facility] Date of Admission to Rehab: 01/16/17 - Vital signs Vital Signs: Vital Signs Period Temp Pulse Resp BP Sys/Cantor Pulse Ox Last 24 Hr 98.9 F 83 18 145/88 - Findings Detox History & Physical reviewed: Yes Concur with findings: Yes Comments/Additional Findings: transferred from detox to rehab admission as per protocol
[2017-01-16] MEDS: NICOTINE POLACRILEX 2 MG GUM BUC PRN ×2 (16:58→21:53)
[2017-01-16] MEDS ORDERED: PNEUMOC 13-VAL CONJ-DIP CRM/PF 0.5 ML DISP.SYRIN IM ONE (17:30)
--- NOTE | 2017-01-16 18:16 | HP ---
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 smokes cigarettes 1ppd Psychiatric History: Denies history of previous psychiatric treatment Physical/Sexual Abuse/Trauma History: Denies history of physical, sexual abuse as well as DV relationship Additional Comment: No criminal history Vital Signs: Vital Signs - 24 hr 01/16/17 14:25 Temperature 98.9 F Pulse Rate 83 Respiratory 18 Rate Blood Pressure 145/88 Allergies/Adverse Reactions: Allergies Allergy/AdvReac Type Severity Reaction Status Date / Time No Known Allergies Allergy Verified 01/12/17 18:32 Date of last physical exam: 01/12/17 Concur with the findings of this exam: Yes - Substance Abuse/Tx History Hx Alcohol Use: No Hx Substance Use: Yes Substance Use Type: Alcohol (Started drinking at age 8, consumes 2 pints of vodka. Last drink on 5 months ago), Opiates (Started using percocet at age 50, consumes 60 mg daily. Last used on 01/12/17) Hx Substance Use Treatment: Yes (2 inpt detox @ [facility]. One incomplete inpt rehab @ [facility]) - Admission Criteria Previous failed treatment: Yes Poor recovery environment: Yes Comorbidities: Yes Lacks judgement: Yes Mental Status Exam - Mental Status Exam Alert and Oriented to: Time, Place, Person Cognitive Function: Fair Patient Appearance: Well Groomed Mood: Hopeful, Euthymic Affect: Appropriate Patient Behavior: Cooperative Speech Pattern: Clear Voice Loudness: Normal Thought Process: Intact, Goal Oriented Thought Disorder: Not Present Hallucinations: Denies Suicidal Ideation: Denies Homicidal Ideation: Denies Insight/Judgement: Fair Sleep: Fair Appetite: Good Muscle strength/Tone: Normal Gait/Station: Normal Psychiatric Findings - Problem List ([place] 1, 2,3) (1) Opioid dependence with withdrawal Current Visit: No Status: Acute (2) Nicotine dependence Current Visit: No Status: Chronic Qualifiers: Nicotine product type: cigarettes Substance use status: in withdrawal Qualified Code(s): F17.213 - Nicotine dependence, cigarettes, with withdrawal (3) Hypercholesterolemia Current Visit: No Status: Chronic (4) Hypertension Current Visit: No Status: Chronic Qualifiers: Hypertension type: essential hypertension Qualified Code(s): I10 - Essential (primary) hypertension - Initial Treatment Plan Initial Treatment Plan: Monitor progress
[2017-01-16] MEDS: THIAMINE HCL 100 MG TABLET (FP) PO SCH (23:29)
[2017-01-17] MEDS: PRENATAL VITAMINS W/ FOLIC ACID TABLET (FP) PO SCH (10:09)
[2017-01-17] MEDS: HYDROCHLOROTHIAZIDE 25 MG TABLET (FP) PO SCH (10:09)
[2017-01-17] MEDS: LISINOPRIL 20 MG TABLET (FP) PO SCH (10:09)
[2017-01-17] MEDS ORDERED: PNEUMOCOCCAL 23 VACCINE 0.5 ML VIAL IM ONE (12:00)
[2017-01-17] MEDS: THIAMINE HCL 100 MG TABLET (FP) PO SCH (22:51)
[2017-01-18] MEDS: LISINOPRIL 20 MG TABLET (FP) PO SCH (10:06)
[2017-01-18] MEDS: HYDROCHLOROTHIAZIDE 25 MG TABLET (FP) PO SCH (10:06)
[2017-01-18] MEDS: PRENATAL VITAMINS W/ FOLIC ACID TABLET (FP) PO SCH (10:06)
[2017-01-18] MEDS: NICOTINE POLACRILEX 2 MG GUM BUC PRN ×4 (10:36→21:16)
[2017-01-18] MEDS: THIAMINE HCL 100 MG TABLET (FP) PO SCH (21:16)
[2017-01-19] MEDS: NICOTINE POLACRILEX 2 MG GUM BUC PRN ×5 (06:40→23:13)
[2017-01-19] MEDS: HYDROCHLOROTHIAZIDE 25 MG TABLET (FP) PO SCH (10:26)
[2017-01-19] MEDS: PRENATAL VITAMINS W/ FOLIC ACID TABLET (FP) PO SCH (10:26)
[2017-01-19] MEDS: LISINOPRIL 20 MG TABLET (FP) PO SCH (10:26)
[2017-01-19] MEDS: THIAMINE HCL 100 MG TABLET (FP) PO SCH (22:39)
[2017-01-20] MEDS: NICOTINE POLACRILEX 2 MG GUM BUC PRN ×5 (05:27→22:04)
[2017-01-20] MEDS: HYDROCHLOROTHIAZIDE 25 MG TABLET (FP) PO SCH (10:08)
[2017-01-20] MEDS: PRENATAL VITAMINS W/ FOLIC ACID TABLET (FP) PO SCH (10:08)
[2017-01-20] MEDS: LISINOPRIL 20 MG TABLET (FP) PO SCH (10:08)
[2017-01-20] MEDS: THIAMINE HCL 100 MG TABLET (FP) PO SCH (21:42)
[2017-01-21] MEDS: NICOTINE POLACRILEX 2 MG GUM BUC PRN ×3 (06:32→19:36)
[2017-01-21] MEDS: PRENATAL VITAMINS W/ FOLIC ACID TABLET (FP) PO SCH (10:10)
[2017-01-21] MEDS: HYDROCHLOROTHIAZIDE 25 MG TABLET (FP) PO SCH (10:10)
[2017-01-21] MEDS: LISINOPRIL 20 MG TABLET (FP) PO SCH (10:10)
[2017-01-21] MEDS: THIAMINE HCL 100 MG TABLET (FP) PO SCH (22:23)
[2017-01-22] MEDS: NICOTINE POLACRILEX 2 MG GUM BUC PRN ×3 (06:19→21:31)
[2017-01-22] MEDS: LISINOPRIL 20 MG TABLET (FP) PO SCH (10:24)
[2017-01-22] MEDS: HYDROCHLOROTHIAZIDE 25 MG TABLET (FP) PO SCH (10:24)
[2017-01-22] MEDS: PRENATAL VITAMINS W/ FOLIC ACID TABLET (FP) PO SCH (10:24)
[2017-01-22] MEDS: THIAMINE HCL 100 MG TABLET (FP) PO SCH (21:33)
[2017-01-23] MEDS: NICOTINE POLACRILEX 2 MG GUM BUC PRN ×4 (06:24→20:16)
[2017-01-23] MEDS: HYDROCHLOROTHIAZIDE 25 MG TABLET (FP) PO SCH (10:19)
[2017-01-23] MEDS: LISINOPRIL 20 MG TABLET (FP) PO SCH (10:20)
[2017-01-23] MEDS: PRENATAL VITAMINS W/ FOLIC ACID TABLET (FP) PO SCH (10:20)
[2017-01-23] MEDS: THIAMINE HCL 100 MG TABLET (FP) PO SCH (23:16)
[2017-01-24] MEDS: NICOTINE POLACRILEX 2 MG GUM BUC PRN ×5 (03:03→20:34)
[2017-01-24] MEDS: cloNIDine HCL 0.1 MG TABLET PO PRN ×2 (07:25→20:34)
[2017-01-24] MEDS: LISINOPRIL 20 MG TABLET (FP) PO SCH (10:19)
[2017-01-24] MEDS: NICOTINE 14 MG/24 HOURS TOPICAL PATCH TD PRN (10:19)
[2017-01-24] MEDS: PRENATAL VITAMINS W/ FOLIC ACID TABLET (FP) PO SCH (10:19)
[2017-01-24] MEDS: HYDROCHLOROTHIAZIDE 25 MG TABLET (FP) PO SCH (10:19)
[2017-01-24] MEDS: THIAMINE HCL 100 MG TABLET (FP) PO SCH (21:14)
[2017-01-25] MEDS: LISINOPRIL 20 MG TABLET (FP) PO SCH (10:09)
[2017-01-25] MEDS: HYDROCHLOROTHIAZIDE 25 MG TABLET (FP) PO SCH (10:09)
[2017-01-25] MEDS: PRENATAL VITAMINS W/ FOLIC ACID TABLET (FP) PO SCH (10:09)
[2017-01-25] MEDS: NICOTINE 14 MG/24 HOURS TOPICAL PATCH TD PRN (10:11)
[2017-01-25] MEDS: NICOTINE POLACRILEX 2 MG GUM BUC PRN ×4 (10:12→20:47)
--- NOTE | 2017-01-25 13:56 | PN ---
Psychiatric Progress Note Vital Signs: Vital Signs Period Temp Pulse Resp BP Sys/Cantor Pulse Ox Last 24 Hr 98.4 F 75-85 18-18 138-162/72-88 Date of Session: 01/25/17 Chief Complaint:: discharge visit HPI: Patient is addressing opioid,alcohol and nicotine dependence. ROS: HTN medically managed. Current Medications: Active Medications Generic Name Dose Route Start Last Admin Trade Name Freq PRN Reason Stop Dose Admin Acetaminophen 650 mg 01/16/17 16:21 Tylenol - PO Q4H PRN FEVER OR PAIN Al Hydroxide/Mg Hydroxide 30 ml 01/16/17 16:21 Mylanta Oral Suspension - PO Q6H PRN DYSPEPSIA Clonidine 0.1 mg 01/16/17 16:24 01/24/17 20:34 Catapres - PO 0.1 mg Q8H PRN Administration HYPERTENSION Diphenhydramine HCl 50 mg 01/16/17 16:21 Benadryl - PO HSMR1 PRN FOR ITCHING Eucalyptus/Menthol/Phenol/Sorbitol 1 each 01/16/17 16:21 Cepastat Lozenge - MM Q4H PRN SORE THROAT Guaifenesin 10 ml 01/16/17 16:21 Robitussin Dm - PO Q6H PRN COUGH Hydrochlorothiazide 25 mg 01/17/17 10:00 01/25/17 10:09 Hctz - PO 25 mg DAILY TESSA Administration Ibuprofen 400 mg 01/16/17 16:21 Motrin - PO Q6H PRN PAIN Lisinopril 40 mg 01/17/17 10:00 01/25/17 10:09 Prinivil PO 40 mg DAILY TESSA Administration Loperamide HCl 4 mg 01/16/17 16:21 Imodium - PO Q6H PRN DIARRHEA Magnesium Hydroxide 30 ml 01/16/17 16:21 Milk Of Magnesia - PO DAILY PRN CONSTIPATION Nicotine 14 mg 01/16/17 17:15 01/25/17 10:11 Nicoderm Patch - TD 14 mg DAILY PRN Administration WITHDRAWAL(CONT SUBST) Nicotine Polacrilex 2 mg 01/16/17 16:21 01/25/17 13:08 Nicorette Gum - BUC 2 mg Q2H PRN Administration NICOTINE REPLACEMENT RX Multivit/Folic Acid/Iron 1 tab 01/17/17 10:00 01/25/17 10:09 Vitamins (Sjr) - PO 1 tab DAILY TESSA Administration Pseudoephedrine/Triprolidine 1 combo 01/16/17 16:21 Actifed - PO TID PRN NASAL CONGESTION Thiamine HCl 100 mg 01/16/17 22:00 01/24/17 21:14 Vitamin B1 - PO Not Given HS TESSA Current Side Effect: No Lab tests ordered: No Lab tests reviewed: Yes Provider note:: Patient will completed thia treatment and meet his goals on . Patient will continue to address his issues at the next level of care. Patient gained insights into his addiction and motivated to continue maintain sobriety. Patient was encouraged to be adherent to his aftercare plans and utilze all supports available to prevent relapses. Patient is stable for discharge on 01/26/17. Total face to face time:: 20 Mental Status Exam - Mental Status Exam Alert and Oriented to: Time, Place Cognitive Function: Fair Patient Appearance: Well Groomed Mood: Hopeful Affect: Appropriate, Mood Congruent Speech Pattern: Clear, Appropriate Voice Loudness: Normal Thought Process: Intact Thought Disorder: Not Present Hallucinations: Denies Suicidal Ideation: Denies Homicidal Ideation: Denies Insight/Judgement: Fair Sleep: Fair Appetite: Fair Muscle strength/Tone: Normal Gait/Station: Normal Psychiatric Treatment Plan - Problem List (1) Opioid dependence with withdrawal Current Visit: No (2) Hypercholesterolemia Current Visit: No (3) Hypertension Current Visit: No Qualifiers: Hypertension type: essential hypertension Qualified Code(s): I10 - Essential (primary) hypertension (4) Nicotine dependence Current Visit: No Qualifiers: Nicotine product type: cigarettes Substance use status: in withdrawal Qualified Code(s): F17.213 - Nicotine dependence, cigarettes, with withdrawal (5) Alcohol dependence Current Visit: Yes
[2017-01-25] MEDS: THIAMINE HCL 100 MG TABLET (FP) PO SCH (21:36)
[2017-01-26] MEDS: NICOTINE POLACRILEX 2 MG GUM BUC PRN (05:31)
[2017-01-26 07:34] VITALS: BP 139/94; PULSE 106; TEMP 98.8
== END 2017-01-26 08:10 | disposition home or self-care (01) | DRG 772 ==
LOC: YASAS 13:44 → Y3W 14:00
PROVIDERS: ADMIT Psychiatry & Neurology Psychiatry; ATTEND Psychiatry & Neurology Psychiatry
PROC: HZ42ZZZ Group Counseling for Substance Abuse Treatment, Cognitive-Behavioral (ICD-10-PCS; principal; 2017-01-26)
DX: F11.23 Opioid dependence with withdrawal (principal); F10.20 Alcohol dependence, uncomplicated; F17.213 Nicotine dependence, cigarettes, with withdrawal; E78.00 Pure hypercholesterolemia, unspecified
CPT/HCPCS: 90732; G0009; J0735

== ENCOUNTER 2019-02-09 09:49 | Inpatient (IN) | payer MEDICARE, OTHER ==
[2019-02-09 10:14] VITALS: BMI 26.4
--- NOTE | 2019-02-09 10:37 | HP ---
CIWA Score Nausea/Vomitin-No Nausea/No Vomiting Muscle Tremors: None Anxiety: 4-Mod. Anxious/Guarded Agitation: 1-Slight > Activity Paroxysmal Sweats: No Perspiration Orientation: 0-Oriented Tacttile Disturbances: 2-Mild Itch/Numbness/Burn Auditory Disturbances: 2-Mild Harshness/Frighten Visual Disturbances: 2-Mild Sensitivity Headache: 2-Mild CIWA-Ar Total Score: 13 - Admission Criteria [facility] Guidelines: Admission for Medically Managed Detox: Requires at least one of the followin. CIWA greater than 12 2. Seizures within the past 24 hours 3. Delirium tremens within the past 24 hours 4. Hallucinations within the past 24 hours 5. Acute intervention needed for co occurring medical disorder 6. Acute intervention needed for co occurring psychiatric disorder 7. Severe withdrawal that cannot be handled at a lower level of care (continued vomiting, continued diarrhea, abnormal vital signs) requiring intravenous medication and/or fluids 8. Admission ROS [facility] Allergies/Adverse Reactions: Allergies Allergy/AdvReac Type Severity Reaction Status Date / Time No Known Allergies Allergy Verified 02/09/19 10:08 History of Present Illness: pt here requesting detox from etoh use , reports sober x 2 years since prior admission to this facility , recent relapse w/ etoh use , claims 1/5 pint/ day , tremors if not drinking , denies seizures, or blackouts, latest use today . Pt is poor historian , irritable . PMHX : htn tobacco : 2 ppd cocaine : " it's a rarity ,I can't afford cocaine every day " . denies other illicits Search Terms: jordi torres, 1955 Search Date: 02/09/2019 10:42:14 AM The Drug Utilization Report below displays all of the controlled substance prescriptions, if any, that your patient has filled in the last twelve months. The information displayed on this report is compiled from pharmacy submissions to the Department, and accurately reflects the information as submitted by the pharmacies. This report was requested by: Jazz Prather | Reference #: [id number] Others' Prescriptions Patient Name: Jordi Torres Date: 1955 Address: [address] [place] [address] Sex: Male Rx Written Rx Dispensed Drug Quantity Days Supply Prescriber Name 02/05/2019 02/05/2019 oxycodone-acetaminophen 10-325 mg tab 28 7 Tj Holloway 02/05/2019 02/05/2019 clonazepam 0.5 mg tablet 60 30 Shanon Villegas MD Patient Name: Jordi Torres Date: 1955 Address: [place] [address] Sex: Male Rx Written Rx Dispensed Drug Quantity Days Supply Prescriber Name 01/10/2019 01/17/2019 alprazolam 2 mg tablet 60 30 Harika Hathaway MD 11/12/2018 01/10/2019 zolpidem tartrate 10 mg tablet 30 30 Harika Hathaway MD 11/12/2018 12/18/2018 zolpidem tartrate 10 mg tablet 30 30 Harika Hathaway MD 12/17/2018 12/18/2018 alprazolam 2 mg tablet 60 30 Harika Hathaway MD 11/12/2018 11/12/2018 zolpidem tartrate 10 mg tablet 30 30 Harika Hathaway MD 11/12/2018 11/12/2018 alprazolam 2 mg tablet 60 30 Harika Hathaway MD 09/20/2018 09/21/2018 alprazolam 2 mg tablet 60 30 Harika Hathaway MD 09/20/2018 09/21/2018 zolpidem tartrate 10 mg tablet 30 30 Harika Hathaway MD 08/16/2018 08/23/2018 alprazolam 2 mg tablet 60 30 Harika Hathaway MD 08/16/2018 08/23/2018 zolpidem tartrate 10 mg tablet 30 30 Harika Hathaway MD 07/26/2018 07/26/2018 zolpidem tartrate 10 mg tablet 30 30 Harika Hathaway MD 07/26/2018 07/26/2018 alprazolam 2 mg tablet 60 30 Harika Hathaway MD 06/21/2018 06/21/2018 zolpidem tartrate 10 mg tablet 30 30 Harika Hathaway MD 06/21/2018 06/21/2018 alprazolam 2 mg tablet 60 30 Harika Hathaway MD 05/21/2018 05/21/2018 zolpidem tartrate 10 mg tablet 30 30 Harika Hathaway MD 05/21/2018 05/21/2018 alprazolam 2 mg tablet 60 30 Harika Hathaway MD 04/19/2018 04/19/2018 zolpidem tartrate 10 mg tablet 30 30 Harika Hathaway MD 04/19/2018 04/19/2018 alprazolam 2 mg tablet 60 30 Harika Hathaway MD Patient Name: Jordi Torres Date: 1955 Address: [address] [place] [address] Sex: Male Rx Written Rx Dispensed Drug Quantity Days Supply Prescriber Name 01/03/2019 01/03/2019 diazepam 5 mg tablet 10 3 Anjum Garcia Adam () 01/01/2019 01/01/2019 oxycodone-acetaminophen 5-325 mg tablet 6 2 [facility] 12/17/2018 12/17/2018 oxycodone-acetaminophen 5-325 mg tablet 7 2 [facility] 03/25/2018 04/01/2018 oxycodone-acetaminophen 10-325 mg tab 75 19 Francisca Bennett NP Patient Name: Jordi Torres Date: 1955 Address: [address] [place] [address] Sex: Male Rx Written Rx Dispensed Drug Quantity Days Supply Prescriber Name 11/26/2018 11/26/2018 acetaminophen-cod #3 tablet 60 30 Abner Smiley K Patient Name: Jordi Torres Date: 1955 Address: [address] [place] [address] Sex: Male Rx Written Rx Dispensed Drug Quantity Days Supply Prescriber Name 10/08/2018 10/17/2018 clonazepam 0.5 mg tablet 90 30 Shanon Villegas MD 10/10/2018 10/10/2018 oxycodone-acetaminophen 10-325 mg tab 60 15 Jewel Tj 09/17/2018 09/17/2018 clonazepam 0.5 mg tablet 60 30 Shanon Villegas MD 09/10/2018 09/12/2018 oxycodone-acetaminophen 10-325 mg tab 60 15 Jewel, Tj 09/10/2018 09/12/2018 fentanyl 12 mcg/hr patch 10 30 Jewel, Tj 08/13/2018 08/16/2018 fentanyl 12 mcg/hr patch 10 30 Jewel, Tj 08/13/2018 08/14/2018 oxycodone-acetaminophen 10-325 mg tablet 60 15 Tj Holloway 07/23/2018 07/23/2018 clonazepam 1 mg tablet 60 30 Shanon Villegas MD 07/17/2018 07/19/2018 fentanyl 12 mcg/hr patch 10 30 Richie Hollowaymir 07/17/2018 07/17/2018 oxycodone-acetaminophen 10-325 mg tablet 60 15 Richie Hollowaymir 06/18/2018 06/20/2018 fentanyl 12 mcg/hr patch 10 30 Richie Hollowaymir 06/18/2018 06/18/2018 oxycodone-acetaminophen 10-325 mg tablet 60 15 Richie Hollowaymir 05/23/2018 05/23/2018 fentanyl 12 mcg/hr patch 10 30 Richie Hollowaymir 05/23/2018 05/23/2018 oxycodone-acetaminophen 10-325 mg tablet 60 15 Richie Hollowaymir 04/23/2018 04/23/2018 oxycodone-acetaminophen 10-325 mg tablet 65 16 Tj Holloway 04/23/2018 04/23/2018 fentanyl 12 mcg/hr patch 10 30 Tj Holloway Patient Name: Jordi Torres Date: 1955 Address: [address] [place] [address] Sex: Male Rx Written Rx Dispensed Drug Quantity Days Supply Prescriber Name 03/21/2018 03/22/2018 oxycodone-acetaminophen 10-325 mg tablet 28 7 Francisca Bennett NP 02/15/2018 02/15/2018 oxycodone-acetaminophen 10-325 mg tablet 75 25 Albert Dutta MD * - Drugs marked with an asterisk are compound drugs. If the compound drug is made up of more than one controlled substance, then each controlled Exam Limitations: Clinical Condition, Intoxication - Ebola screening Have you traveled outside of the country in the last 21 days: No (N) Have you had contact with anyone from an Ebola affected area: No Do you have a fever: No - Review of Systems Constitutional: See HPI EENT: reports: No Symptoms Reported Respiratory: reports: No Symptoms reported Cardiac: reports: No Symptoms Reported GI: reports: No Symptoms Reported : reports: No Symptoms Reported Musculoskeletal: reports: Joint Pain (using cane for bilateral knee pain) Integumentary: reports: No Symptoms Reported Neuro: reports: See HPI Endocrine: reports: No Symptoms Reported Psychiatric: reports: Orientated x3, Agitated, Anxious Patient History - Patient Medical History Hx Anemia: No Hx Asthma: No Hx Chronic Obstructive Pulmonary Disease (COPD): No Hx Cancer: No Hx Cardiac Disorders: No Hx Congestive Heart Failure: No Hx Hypertension: Yes Hx Hypercholesterolemia: No (BY HX) Hx Pacemaker: No HX Cerebrovascular Accident: No Hx Seizures: No Hx Dementia: No Hx Diabetes: No Hx Gastrointestinal Disorders: No Hx Liver Disease: No Hx Genitourinary Disorders: No Hx Sexually Transmitted Disorders: No Hx Renal Disease (ESRD): No Hx Thyroid Disease: No Hx Human Immunodeficiency Virus (HIV): No (NEGATIVE HX) Hx Hepatitis C: No Hx Depression: No Hx Suicide Attempt: No Hx Bipolar Disorder: No Hx Schizophrenia: No - Patient Surgical History Past Surgical History: No Hx Neurologic Surgery: No Hx Cataract Extraction: No Hx Cardiac Surgery: No Hx Lung Surgery: No Hx Breast Surgery: No Hx Breast Biopsy: No Hx Abdominal Surgery: No Hx Appendectomy: No Hx Cholecystectomy: No Hx Genitourinary Surgery: No Hx Section: No Hx Orthopedic Surgery: No Anesthesia Reaction: No - PPD History Date: 01/14/17 Results: NEGATIVE - Smoking Cessation Smoking history: Current every day smoker Have you smoked in the past 12 months: Yes Aproximately how many cigarettes per day: 20 Cigars Per Day: 0 Hx Chewing Tobacco Use: No Initiated information on smoking cessation: No - Substances abused Alcohol Substance route: Oral Frequency: Daily Amount used: 5th daily- liquor Age of first use: 14 Date of last use: 02/09/19 Cocaine Substance route: Inhalation Frequency: 1-2 times per week Amount used: 1bag Age of first use: 45 Date of last use: 02/07/19 Family Disease History - Family Disease History Family History: Denies Admission Physical Exam [facility] - Vital Signs Vital Signs: Vital Signs - 24 hr 02/09/19 10:08 Temperature 98.2 F Pulse Rate 89 Respiratory 18 Rate Blood Pressure 166/88 - Physical General Appearance: Yes: Mild Distress, Irritable, Anxious HEENTM: Yes: EOMI, Hearing grossly Normal, Normocephalic, Normal Voice Respiratory: Yes: Chest Non-Tender, Lungs Clear, Normal Breath Sounds Neck: Yes: No masses,lesions,Nodules, Trachea in good position Cardiology: Yes: Regular Rhythm, Regular Rate, S1, S2, Tachycardia Abdominal: Yes: Non Tender, Soft Back: Yes: Normal Inspection Musculoskeletal: Yes: Joint Stiffness, Joint swelling (r knee - mild, chronic per pt), Other (using cane for ambulation) Extremities: Yes: Normal Range of Motion, Non-Tender Neurological: Yes: Fully Oriented, Alert, Motor Strength 5/5 Integumentary: Yes: Warm - Diagnostic (1) Alcohol intoxication Current Visit: Yes Status: Acute Qualifiers: Complication of substance-induced condition: uncomplicated Qualified Code(s ): F10.920 - Alcohol use, unspecified with intoxication, uncomplicated (2) Cocaine abuse, episodic Current Visit: Yes Status: Chronic (3) Nicotine dependence Current Visit: Yes Status: Chronic Qualifiers: Nicotine product type: cigarettes Breathalyzer - Breathalyzer Breathalyzer: 0.028 Urine Drug Screen - Test Device Lot number: [id number] Expiration date: 10/24/20 - Control Is test valid?: Yes - Results Drug screen NEGATIVE: No Urine drug screen results: [facility] Admission - Rehab Decision to Admit Inpatient rehab admission?: No
[2019-02-09] MEDS ORDERED: MAGNESIUM CITRATE 300 ML BOTTLE PO PRN (10:45)
[2019-02-09] MEDS ORDERED: MENTHOL/PHENOL 1 EACH UD MM PRN (10:45)
[2019-02-09] MEDS ORDERED: BISMUTH SUBSALICYLATE 524 MG/30 ML UD PO PRN (10:45)
[2019-02-09] MEDS ORDERED: MELATONIN 5 MG TABLETS PO PRN (10:45)
[2019-02-09] MEDS ORDERED: MAGNESIUM HYDROX 2400MG/30ML ORAL SUSPENSION 30 ML CUP PO PRN (10:45)
[2019-02-09] MEDS ORDERED: MAG HYDROX/AL HYDROX/SIMETH 30 ML UNIT-DOSE CUP PO PRN (10:45)
[2019-02-09] MEDS ORDERED: ACETAMINOPHEN 325 MG TABLET (FP) PO PRN ×2 (10:45)
[2019-02-09] MEDS ORDERED: IBUPROFEN 400 MG TABLET (FP) PO PRN ×2 (10:45→10:47)
[2019-02-09] MEDS: HYDROCHLOROTHIAZIDE 25 MG TABLET (FP) PO SCH (11:20)
[2019-02-09] MEDS: diazePAM 5 MG TABLET PO PRN ×2 (11:21→18:24)
[2019-02-09] MEDS: NICOTINE POLACRILEX 2 MG GUM BUC PRN ×3 (11:23→18:25)
[2019-02-09] MEDS: diazePAM 5 MG TABLET PO SCH ×2 (14:25→22:28)
[2019-02-09] MEDS: hydrOXYzine PAMOATE 25 MG CAPSULE (FP) PO PRN (18:24)
[2019-02-09] MEDS: THIAMINE HCL 100 MG TABLET (FP) PO SCH (22:28)
[2019-02-10] MEDS: diazePAM 5 MG TABLET PO SCH ×3 (05:42→22:23)
[2019-02-10] MEDS: NICOTINE POLACRILEX 2 MG GUM BUC PRN ×3 (05:43→22:29)
[2019-02-10 10:29] LABS: ALBUMIN 3.4 g/dl (3.4-5.0); BILIRUBIN,TOTAL 0.3 mg/dL (0.2-1); CALCIUM 8.7 mg/dL (8.5-10.1); CREATININE 1.3 mg/dL (0.55-1.3); POTASSIUM 3.8 mmol/L (3.5-5.1); TOT PROT 6.3 g/dl (6.4-8.2)
[2019-02-10 10:33] LABS: HEMATOCRIT 38.5 % (35.4-49); HEMOGLOBIN 12.8 GM/dL (11.7-16.9); MCH 32.1 pg (25.7-33.7); MCHC 33.2 g/dl (32.0-35.9); MEAN CELL VOLUME 96.7 fl (80-96); MEAN PLT VOLUME 8.5 fl (7.5-11.1); PLATELET COUNT 297 K/MM3 (134-434); RBC 3.98 M/mm3 (4.00-5.60); RDW 14.3 % (11.9-15.9); WHITE BLOOD COUNT 7.6 K/mm3 (4.0-10.0)
[2019-02-10] MEDS: hydrOXYzine PAMOATE 25 MG CAPSULE (FP) PO PRN (11:22)
[2019-02-10] MEDS: LISINOPRIL 20 MG TABLET (FP) PO SCH (11:23)
[2019-02-10] MEDS: PRENATAL VITAMINS W/ FOLIC ACID TABLET (FP) PO SCH (11:23)
[2019-02-10] MEDS: HYDROCHLOROTHIAZIDE 25 MG TABLET (FP) PO SCH (11:23)
--- NOTE | 2019-02-10 13:16 | PN ---
S CIWA - CIWA Score Nausea/Vomitin-No Nausea/No Vomiting Muscle Tremors: 3 Anxiety: 2 Agitation: 3 Paroxysmal Sweats: 2 Orientation: 0-Oriented Tacttile Disturbances: 0-None Auditory Disturbances: 0-None Visual Disturbances: 0-None Headache: 0-None Present CIWA-Ar Total Score: 10 S Progress Note (SOAP) Subjective: low back pain sweats interrupted sleep mild shakes Objective: 02/10/19 13:15 Vital Signs Temperature 98.2 F 02/10/19 13:11 Pulse Rate 84 02/10/19 13:11 Respiratory Rate 17 02/10/19 13:11 Blood Pressure 158/97 02/10/19 13:11 O2 Sat by Pulse Oximetry (%) Laboratory Tests 02/10/19 02/10/19 02/10/19 07:30 07:30 07:30 WBC 7.6 RBC 3.98 L Hgb 12.8 Hct 38.5 MCV 96.7 H MCH 32.1 MCHC 33.2 RDW 14.3 Plt Count 297 D MPV 8.5 Sodium 141 Potassium 3.8 Chloride 108 H Carbon Dioxide 30 Anion Gap 4 L BUN 22.0 H Creatinine 1.3 Est GFR (CKD-EPI)AfAm 67.30 Est GFR (CKD-EPI)NonAf 58.07 Random Glucose 94 Calcium 8.7 Total Bilirubin 0.3 AST 14 L ALT 15 Alkaline Phosphatase 67 Total Protein 6.3 L Albumin 3.4 RPR Titer Nonreactive labs noted aaox3 ambulating no acute distress Assessment: 02/10/19 13:16 withdrawal sx Plan: continue detox motrin 600mg prn lidocaine patch
[2019-02-10] MEDS ORDERED: LIDOCAINE 5% TOPICAL PATCH TP ONE (13:45)
[2019-02-10] MEDS: THIAMINE HCL 100 MG TABLET (FP) PO SCH (22:26)
[2019-02-10] MEDS: LIDOCAINE PATCH REMOVAL MC SCH (22:26)
[2019-02-11] MEDS ORDERED: diazePAM 5 MG TABLET PO ONE (06:00)
[2019-02-11] MEDS: NICOTINE POLACRILEX 2 MG GUM BUC PRN ×2 (06:51→20:17)
--- NOTE | 2019-02-11 10:04 | PN ---
S CIWA - CIWA Score Nausea/Vomitin-No Nausea/No Vomiting Muscle Tremors: 3 Anxiety: 2 Agitation: 2 Paroxysmal Sweats: 2 Orientation: 0-Oriented Tacttile Disturbances: 0-None Auditory Disturbances: 0-None Visual Disturbances: 0-None Headache: 0-None Present CIWA-Ar Total Score: 9 BHS Progress Note (SOAP) Subjective: sweats tired sleepy body aches Objective: 02/11/19 10:03 Vital Signs Temperature 98.2 F 02/11/19 10:01 Pulse Rate 90 02/11/19 10:01 Respiratory Rate 18 02/11/19 10:01 Blood Pressure 140/75 02/11/19 10:01 O2 Sat by Pulse Oximetry (%) Laboratory Tests 02/10/19 02/10/19 02/10/19 07:30 07:30 07:30 WBC 7.6 RBC 3.98 L Hgb 12.8 Hct 38.5 MCV 96.7 H MCH 32.1 MCHC 33.2 RDW 14.3 Plt Count 297 D MPV 8.5 Sodium 141 Potassium 3.8 Chloride 108 H Carbon Dioxide 30 Anion Gap 4 L BUN 22.0 H Creatinine 1.3 Est GFR (CKD-EPI)AfAm 67.30 Est GFR (CKD-EPI)NonAf 58.07 Random Glucose 94 Calcium 8.7 Total Bilirubin 0.3 AST 14 L ALT 15 Alkaline Phosphatase 67 Total Protein 6.3 L Albumin 3.4 RPR Titer Nonreactive aaox3 ambulating no acute distress Assessment: 02/11/19 10:03 mild withdrawal sx Plan: continue detox increase fluids
[2019-02-11] MEDS: LISINOPRIL 20 MG TABLET (FP) PO SCH (10:44)
[2019-02-11] MEDS: PRENATAL VITAMINS W/ FOLIC ACID TABLET (FP) PO SCH (10:44)
[2019-02-11] MEDS: HYDROCHLOROTHIAZIDE 25 MG TABLET (FP) PO SCH (10:44)
[2019-02-11] MEDS: LIDOCAINE 5% TOPICAL PATCH TP SCH (10:46)
[2019-02-11] MEDS: hydrOXYzine PAMOATE 25 MG CAPSULE (FP) PO PRN (20:15)
[2019-02-11] MEDS ORDERED: cloNIDine HCL 0.1 MG TABLET PO PRN (21:47)
[2019-02-11] MEDS: THIAMINE HCL 100 MG TABLET (FP) PO SCH (22:20)
[2019-02-11] MEDS: LIDOCAINE PATCH REMOVAL MC SCH (22:33)
--- NOTE | 2019-02-12 09:43 | DS ---
[facility] Detox Discharge Summary Admission Date: 02/09/19 Discharge Date: 02/12/19 - History Present History: Alcohol Dependence, Cannabis Dependence, Cocaine Dependence, Opioid Dependence - Physical Exam Results Vital Signs: Vital Signs Temperature 98.2 F 02/12/19 08:14 Pulse Rate 78 02/12/19 08:14 Respiratory Rate 18 02/12/19 08:14 Blood Pressure 119/54 L 02/12/19 08:14 O2 Sat by Pulse Oximetry (%) - Treatment Hospital Course: Detox Protocol Followed, Detoxed Safely, Responded well, Discharged Condition Good, Rehab Referral Accepted - Medication Discharge Medications: Ambulatory Orders Hydrochlorothiazide 25 mg PO DAILY #30 tab 01/25/17 Lisinopril [Prinivil -] 40 mg PO DAILY #30 tab 01/25/17 - Diagnosis (1) Nicotine dependence Current Visit: Yes Status: Chronic Qualifiers: Nicotine product type: cigarettes Substance use status: uncomplicated Qualified Code(s): F17.210 - Nicotine dependence, cigarettes, uncomplicated (2) Alcohol-induced sleep disorder Current Visit: No Status: Acute (3) Opioid dependence with withdrawal Current Visit: Yes Status: Acute (4) Substance induced mood disorder Current Visit: No Status: Acute (5) Alcohol dependence with uncomplicated withdrawal Current Visit: Yes Status: Chronic (6) Cocaine dependence, uncomplicated Current Visit: No Status: Chronic (7) Depression (emotion) Current Visit: No Status: Chronic Qualifiers: Depression Type: dysthymia Qualified Code(s): F34.1 - Dysthymic disorder (8) Hypercholesterolemia Current Visit: No Status: Chronic (9) Hypertension Current Visit: No Status: Chronic Qualifiers: Hypertension type: essential hypertension Qualified Code(s): I10 - Essential (primary) hypertension - AMA Did Patient Leave Against Medical Advice: No (pt referred revelations inpatient rehab.)
[2019-02-12] MEDS: LIDOCAINE 5% TOPICAL PATCH TP SCH (10:55)
[2019-02-12] MEDS: PRENATAL VITAMINS W/ FOLIC ACID TABLET (FP) PO SCH (10:56)
[2019-02-12] MEDS: LISINOPRIL 20 MG TABLET (FP) PO SCH (10:56)
[2019-02-12] MEDS: HYDROCHLOROTHIAZIDE 25 MG TABLET (FP) PO SCH (10:56)
[2019-02-12 11:53] VITALS: TEMP 97.7
[2019-02-12 14:05] VITALS: BP 144/79; PULSE 97
== END 2019-02-12 14:34 | disposition other institution (70) | DRG 897 ==
LOC: YASAS 09:49 → Y6N 10:52
PROVIDERS: ADMIT Surgery; ATTEND Surgery
PROC: HZ2ZZZZ Detoxification Services for Substance Abuse Treatment (ICD-10-PCS; principal; 2019-02-09)
DX: F10.230 Alcohol dependence with withdrawal, uncomplicated (principal); F14.20 Cocaine dependence, uncomplicated; F10.282 Alcohol dependence with alcohol-induced sleep disorder; F17.210 Nicotine dependence, cigarettes, uncomplicated; F19.24 Other psychoactive substance dependence with psychoactive substance-induced mood disorder; F34.1 Dysthymic disorder; E78.00 Pure hypercholesterolemia, unspecified; I10 Essential (primary) hypertension
CPT/HCPCS: 36415; 80053; 85027; 86593; J0735

== ENCOUNTER 2019-02-12 14:36 | Inpatient (IN) | payer MEDICARE, OTHER ==
[2019-02-12] MEDS ORDERED: IBUPROFEN 400 MG TABLET (FP) PO PRN (14:57)
[2019-02-12] MEDS ORDERED: MAGNESIUM CITRATE 300 ML BOTTLE PO PRN (14:57)
[2019-02-12] MEDS ORDERED: guaiFENesin 200 MG/10 ML 10 ML UNIT-DOSE CUPS PO PRN (14:57)
[2019-02-12] MEDS ORDERED: LOPERAMIDE HCL 2 MG CAPSULE PO PRN (14:57)
[2019-02-12] MEDS ORDERED: MAG HYDROX/AL HYDROX/SIMETH 30 ML UNIT-DOSE CUP PO PRN (14:57)
[2019-02-12] MEDS ORDERED: MENTHOL/PHENOL 1 EACH UD MM PRN (14:57)
[2019-02-12] MEDS ORDERED: P-EPHED 60MG/TRIPROLIDI 2.5MG TABLET PO PRN (14:57)
[2019-02-12] MEDS ORDERED: MAGNESIUM HYDROX 2400MG/30ML ORAL SUSPENSION 30 ML CUP PO PRN (14:57)
--- NOTE | 2019-02-12 14:57 | HP ---
MIESHA ROMERO Rehab Assess/Revision - Admission History Admitted to Rehab from: [facility] - Findings Detox History & Physical reviewed: Yes Concur with findings: Yes Inpatient Rehab Admission - Rehab Decision to Admit Inpatient rehab admission?: Yes - Initial Determination Are CD services needed?: Yes Free of communicable disease: Yes Not in need of hospitalization: Yes - Rehab Admission Criteria Previous failed treatment: Yes Poor recovery environment: Yes Comorbidities: Yes Lacks judgement: Yes Patient is meeting Inpatient Rehab admission criteria:: Yes
[2019-02-12] MEDS: NICOTINE POLACRILEX 4 MG GUM BUC PRN ×2 (17:23→21:19)
[2019-02-12] MEDS: hydrOXYzine PAMOATE 50 MG CAPSULE (FP) PO PRN (21:19)
[2019-02-12] MEDS: MELATONIN 5 MG TABLETS PO PRN (21:19)
[2019-02-12] MEDS: LIDOCAINE PATCH REMOVAL MC SCH (21:20)
[2019-02-12] MEDS: THIAMINE HCL 100 MG TABLET (FP) PO SCH (21:20)
[2019-02-13] MEDS: NICOTINE 21 MG/24 HOURS TOPICAL PATCH TD SCH (09:49)
[2019-02-13] MEDS: LIDOCAINE 5% TOPICAL PATCH TP SCH (09:49)
[2019-02-13] MEDS: PRENATAL VITAMINS W/ FOLIC ACID TABLET (FP) PO SCH (09:49)
[2019-02-13] MEDS: NICOTINE POLACRILEX 4 MG GUM BUC PRN ×3 (09:52→21:50)
[2019-02-13] MEDS: METHOCARBAMOL 500 MG TABLET PO SCH ×2 (11:13→21:51)
--- NOTE | 2019-02-13 11:57 | PN ---
BHS Progress Note (SOAP) Subjective: C/o back pain; sciatica Objective: Patient with limited ROM, cannot tolerate standing, using wheelchair. 02/13/19 11:54 Assessment: Chronic back pain 02/13/19 11:54 Plan: Roboxin ordered, ibuprofen increased, iona-mora added for use when lidoderm patch is removed. If pain continues, will consider gabapentin.
[2019-02-13] MEDS: LIDOCAINE PATCH REMOVAL MC SCH (21:50)
[2019-02-13] MEDS: hydrOXYzine PAMOATE 50 MG CAPSULE (FP) PO PRN (21:50)
[2019-02-13] MEDS: METHYL SALICYLATE/MENTHOL OINT 30 GM TUBE TP SCH (21:51)
[2019-02-13] MEDS: THIAMINE HCL 100 MG TABLET (FP) PO SCH (21:52)
[2019-02-13] MEDS: MELATONIN 5 MG TABLETS PO PRN (21:52)
[2019-02-14] MEDS: NICOTINE 21 MG/24 HOURS TOPICAL PATCH TD SCH (10:00)
[2019-02-14] MEDS: LIDOCAINE 5% TOPICAL PATCH TP SCH (10:00)
[2019-02-14] MEDS: PRENATAL VITAMINS W/ FOLIC ACID TABLET (FP) PO SCH (10:00)
[2019-02-14] MEDS: METHOCARBAMOL 500 MG TABLET PO SCH ×2 (10:01→21:27)
[2019-02-14] MEDS: NICOTINE POLACRILEX 4 MG GUM BUC PRN ×4 (10:02→21:30)
[2019-02-14] MEDS: IBUPROFEN 600 MG TABLET (FP) PO PRN (16:04)
[2019-02-14 16:17] LABS: HEP B CORE AB, TOT Negative (Negative)
[2019-02-14] MEDS: ACETAMINOPHEN 325 MG TABLET (FP) PO PRN (17:24)
[2019-02-14] MEDS: THIAMINE HCL 100 MG TABLET (FP) PO SCH (21:27)
[2019-02-14] MEDS: METHYL SALICYLATE/MENTHOL OINT 30 GM TUBE TP SCH (21:28)
[2019-02-14] MEDS: MELATONIN 5 MG TABLETS PO PRN (21:29)
[2019-02-14] MEDS: LIDOCAINE PATCH REMOVAL MC SCH (21:29)
[2019-02-14] MEDS: hydrOXYzine PAMOATE 50 MG CAPSULE (FP) PO PRN (21:29)
[2019-02-15] MEDS: IBUPROFEN 600 MG TABLET (FP) PO PRN (08:46)
[2019-02-15] MEDS: LIDOCAINE 5% TOPICAL PATCH TP SCH (09:38)
[2019-02-15] MEDS: METHOCARBAMOL 500 MG TABLET PO SCH ×2 (09:38→21:22)
[2019-02-15] MEDS: PRENATAL VITAMINS W/ FOLIC ACID TABLET (FP) PO SCH (09:38)
[2019-02-15] MEDS: NICOTINE 21 MG/24 HOURS TOPICAL PATCH TD SCH (09:38)
[2019-02-15] MEDS: hydrOXYzine PAMOATE 50 MG CAPSULE (FP) PO PRN ×2 (09:39→21:21)
[2019-02-15] MEDS: NICOTINE POLACRILEX 4 MG GUM BUC PRN ×3 (09:39→21:22)
[2019-02-15] MEDS: ACETAMINOPHEN 325 MG TABLET (FP) PO PRN (16:54)
[2019-02-15] MEDS: THIAMINE HCL 100 MG TABLET (FP) PO SCH (21:21)
[2019-02-15] MEDS: LIDOCAINE PATCH REMOVAL MC SCH (21:23)
[2019-02-15] MEDS: METHYL SALICYLATE/MENTHOL OINT 30 GM TUBE TP SCH (21:23)
[2019-02-16] MEDS: IBUPROFEN 600 MG TABLET (FP) PO PRN (03:52)
[2019-02-16] MEDS: NICOTINE 21 MG/24 HOURS TOPICAL PATCH TD SCH (10:02)
[2019-02-16] MEDS: PRENATAL VITAMINS W/ FOLIC ACID TABLET (FP) PO SCH (10:02)
[2019-02-16] MEDS: LIDOCAINE 5% TOPICAL PATCH TP SCH (10:02)
[2019-02-16] MEDS: METHOCARBAMOL 500 MG TABLET PO SCH ×2 (10:03→21:42)
[2019-02-16] MEDS: NICOTINE POLACRILEX 4 MG GUM BUC PRN ×3 (10:05→21:43)
[2019-02-16] MEDS: ACETAMINOPHEN 325 MG TABLET (FP) PO PRN (17:52)
[2019-02-16] MEDS: hydrOXYzine PAMOATE 50 MG CAPSULE (FP) PO PRN (21:41)
[2019-02-16] MEDS: LIDOCAINE PATCH REMOVAL MC SCH (21:42)
[2019-02-16] MEDS: METHYL SALICYLATE/MENTHOL OINT 30 GM TUBE TP SCH (21:42)
[2019-02-16] MEDS: THIAMINE HCL 100 MG TABLET (FP) PO SCH (21:42)
[2019-02-17] MEDS: PRENATAL VITAMINS W/ FOLIC ACID TABLET (FP) PO SCH (10:14)
[2019-02-17] MEDS: IBUPROFEN 600 MG TABLET (FP) PO PRN ×2 (10:14→21:20)
[2019-02-17] MEDS: METHOCARBAMOL 500 MG TABLET PO SCH ×2 (10:14→21:20)
[2019-02-17] MEDS: hydrOXYzine PAMOATE 50 MG CAPSULE (FP) PO PRN ×2 (10:14→21:20)
[2019-02-17] MEDS: NICOTINE POLACRILEX 4 MG GUM BUC PRN ×3 (10:15→21:21)
[2019-02-17] MEDS: LIDOCAINE 5% TOPICAL PATCH TP SCH (10:15)
[2019-02-17] MEDS: NICOTINE 21 MG/24 HOURS TOPICAL PATCH TD SCH (10:15)
--- NOTE | 2019-02-17 10:35 | PN ---
S Progress Note Note: PATIENT C/O CHRONIC BACK PAIN WHICH RADIATES TO LEFT LOWER EXTREMITY. PATIENT STATES HE IS TREATED BY PAIN MANAGEMENT FOR BACK PAIN WITH GABAPENTIN AND CURRENT TREATMENT WITH LIDOCAINE PATCH AND APAP/IBU INEFFECTIVE FOR PAIN RELIEF. NO RECENT INJURIES REPORTED. Laboratory Tests 02/13/19 02/13/19 08:25 08:25 Hepatitis A Ab Total Positive H Hep Bs Antibody Reactive Hep B Core Total Ab Negative HIV 1&2 Antibody Screen Negative HIV P24 Antigen Negative Vital Signs Temperature 98.2 F 02/17/19 07:28 Pulse Rate 86 02/17/19 09:30 Respiratory Rate 18 02/17/19 09:30 Blood Pressure 159/82 02/17/19 09:30 O2 Sat by Pulse Oximetry (%) PE: ALERT AND ORIENTED X 3 SKIN WARM AND DRY +PERRLA, EOMS INTACT BL EXT NO VISIBLE EDEMA, USES WHEELCHAIR FOR TRANSPORT AMB WITH LIMP TO LEFT SIDE CHRONIC BACK PAIN WILL START GABAPENTIN 300MG PO TID PRESCRIPTION CONFIRMED IN EXTERNAL HX FOR 800MG, HOWEVER WILL START AT LOWER DOSE AND MONITOR CLINICALLY
[2019-02-17] MEDS: GABAPENTIN 300 MG CAPSULE (FP) PO SCH ×2 (13:47→21:20)
[2019-02-17] MEDS: TOLNAFTATE 1% CREAM 15 GM TUBE TP SCH ×2 (13:48→21:19)
[2019-02-17] MEDS: THIAMINE HCL 100 MG TABLET (FP) PO SCH (21:20)
[2019-02-17] MEDS: LIDOCAINE PATCH REMOVAL MC SCH (21:58)
[2019-02-17] MEDS: METHYL SALICYLATE/MENTHOL OINT 30 GM TUBE TP SCH (21:58)
[2019-02-18] MEDS: GABAPENTIN 300 MG CAPSULE (FP) PO SCH ×2 (05:56→13:51)
[2019-02-18] MEDS: NICOTINE POLACRILEX 4 MG GUM BUC PRN ×3 (05:57→21:34)
[2019-02-18] MEDS: METHOCARBAMOL 500 MG TABLET PO SCH ×2 (09:17→21:34)
[2019-02-18] MEDS: TOLNAFTATE 1% CREAM 15 GM TUBE TP SCH ×2 (09:17→21:36)
[2019-02-18] MEDS: PRENATAL VITAMINS W/ FOLIC ACID TABLET (FP) PO SCH (09:17)
[2019-02-18] MEDS: LIDOCAINE 5% TOPICAL PATCH TP SCH (09:17)
[2019-02-18] MEDS: NICOTINE 21 MG/24 HOURS TOPICAL PATCH TD SCH (09:17)
[2019-02-18] MEDS: GABAPENTIN 400 MG CAPSULE (FP) PO SCH ×2 (16:55→21:34)
[2019-02-18] MEDS ORDERED: PT OWN MED DRAWER 7, Y5N ONE (19:12)
[2019-02-18] MEDS: THIAMINE HCL 100 MG TABLET (FP) PO SCH (21:34)
[2019-02-18] MEDS: MELATONIN 5 MG TABLETS PO PRN (21:35)
[2019-02-18] MEDS: LIDOCAINE PATCH REMOVAL MC SCH (21:35)
[2019-02-18] MEDS: METHYL SALICYLATE/MENTHOL OINT 30 GM TUBE TP SCH (21:35)
[2019-02-19] MEDS: GABAPENTIN 400 MG CAPSULE (FP) PO SCH ×3 (05:45→21:27)
[2019-02-19] MEDS: NICOTINE POLACRILEX 4 MG GUM BUC PRN ×4 (05:46→21:28)
[2019-02-19] MEDS: LIDOCAINE 5% TOPICAL PATCH TP SCH (09:53)
[2019-02-19] MEDS: PRENATAL VITAMINS W/ FOLIC ACID TABLET (FP) PO SCH (09:53)
[2019-02-19] MEDS: NICOTINE 21 MG/24 HOURS TOPICAL PATCH TD SCH (09:53)
[2019-02-19] MEDS: METHOCARBAMOL 500 MG TABLET PO SCH ×2 (09:53→21:27)
[2019-02-19] MEDS: TOLNAFTATE 1% CREAM 15 GM TUBE TP SCH ×2 (09:55→21:28)
[2019-02-19] MEDS: IBUPROFEN 600 MG TABLET (FP) PO PRN (13:35)
[2019-02-19] MEDS: METHYL SALICYLATE/MENTHOL OINT 30 GM TUBE TP SCH (21:27)
[2019-02-19] MEDS: LIDOCAINE PATCH REMOVAL MC SCH (21:27)
[2019-02-19] MEDS: THIAMINE HCL 100 MG TABLET (FP) PO SCH (21:27)
[2019-02-20] MEDS: IBUPROFEN 600 MG TABLET (FP) PO PRN (02:41)
[2019-02-20] MEDS: GABAPENTIN 400 MG CAPSULE (FP) PO SCH ×3 (05:42→21:20)
[2019-02-20] MEDS: NICOTINE POLACRILEX 4 MG GUM BUC PRN ×2 (05:43→10:34)
[2019-02-20] MEDS: METHOCARBAMOL 500 MG TABLET PO SCH ×2 (10:32→21:20)
[2019-02-20] MEDS: LIDOCAINE 5% TOPICAL PATCH TP SCH (10:32)
[2019-02-20] MEDS: PRENATAL VITAMINS W/ FOLIC ACID TABLET (FP) PO SCH (10:32)
[2019-02-20] MEDS: NICOTINE 21 MG/24 HOURS TOPICAL PATCH TD SCH (10:33)
[2019-02-20] MEDS: TOLNAFTATE 1% CREAM 15 GM TUBE TP SCH ×2 (11:39→21:21)
--- NOTE | 2019-02-20 12:44 | PN ---
[facility] Progress Note Note: PT C/O N/V X 2 INTERMITTENTLY. DENIES DIARRHEA.DENIES HEADACHE OR DIZZINESS. PT WITH A HX OF HTN AND ON HOME MED LISINOPRIL 40 MG PO DAILY AND HYDROCHLOROTHIAZIDE 25 MG PO DAILY. PT REPORTS HIS FATHER PAST AWAY YESTERDAY AND WILL BE TRAVELLING TOMORROW AFTER DISCHARGE TO [facility] TO FAMILY FOR THE OCCASION. PT WANTS TO LEAVE AT 8:00 A.M. ALERT O X 3. Vital Signs - 24 hr 02/20/19 02/20/19 02/20/19 00:30 06:34 09:30 Temperature 97.6 F Pulse Rate 93 H 61 Respiratory 18 18 18 Rate Blood Pressure 159/97 151/81 Laboratory Tests 02/13/19 02/13/19 02/13/19 08:25 08:25 08:25 Hepatitis A Ab Total Positive H Hep Bs Antibody Reactive Hep B Core Total Ab Negative Hep C Ab Diagnostic 7.0 H HCV RNA PCR w/Genot Rflx Hcv not detected Liver Fibrosis Interp HIV 1&2 Antibody Screen Negative HIV P24 Antigen Negative A:NAUSEA/VOMITING HX HTN BEREAVED PLAN:RESTART LISINOPRIL 40 MG PO DAILY NAD HYDROCHLOROTHIAZIDE 25 MY PO DAILY GIVE FIRST DOSE OF LISINOPRIL 20 MG PO AND HYDROCHLOROTHIAZIDE 25 MG PO NOW ZOFRAN 8MG ODT SL DIRECTED TIGAN INJ I.M IF NOT EFFECTIVE.
[2019-02-20] MEDS: ONDANSETRON *ODT* 4 MG TABLET SL PRN ×2 (13:11→21:50)
[2019-02-20] MEDS ORDERED: PATIENT'S OWN MEDICATION (NON-FORMULARY) (Lisinopril [Prinivil -] 40 MG) PO SCH (13:45)
[2019-02-20] MEDS ORDERED: LISINOPRIL 20 MG TABLET (FP) PO ONE (14:00)
[2019-02-20] MEDS ORDERED: HYDROCHLOROTHIAZIDE 25 MG TABLET (FP) PO SCH (14:00)
--- NOTE | 2019-02-20 15:30 | PN ---
BHS Progress Note (SOAP) Subjective: PT COMPLETED REHAB AND SCHEDULED TO DISCHARGE TOMORROW. PT MET WITH HIS COUNSELOR AND HAS BEEN REFERRED TO [facility] IN [facility] FOR CD AFTERCARE. PT REPORTS HE HAS PRIMARY CARE DR. JOYNER(NOT SURE SPELLING) ON [address] [place] [address]. 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 PT REPORTS HE IS FLYING OUT TO [facility] MIDDAY TOMORROW DUE TO LOSS OF HIS AGED FATHER. PT IS ALERT O X 3. DENIES S/H/I. Objective: 02/20/19 15:30 Vital Signs 02/20/19 02/20/19 09:30 14:26 Temperature 96.4 F L Pulse Rate 61 83 Respiratory 18 18 Rate Blood Pressure 151/81 140/82 Laboratory Tests 02/13/19 02/13/19 02/13/19 08:25 08:25 08:25 Hepatitis A Ab Total Positive H Hep Bs Antibody Reactive Hep B Core Total Ab Negative Hep C Ab Diagnostic 7.0 H HCV RNA PCR w/Genot Rflx Hcv not detected Liver Fibrosis Interp HIV 1&2 Antibody Screen Negative HIV P24 Antigen Negative Assessment: 02/20/19 15:30 NAD. Plan: FOLLOW UP WITH CD AFTERCARE RECOMMENDED. D/W PT TO CALL PCP BEFORE TRAVEL. MAKE APPOINTMENT WITH PCP FOR MEDICAL MANAGEMENT WITHIN 1-2 WEEKS AFTER DISCHARGE.
[2019-02-20] MEDS: THIAMINE HCL 100 MG TABLET (FP) PO SCH (21:20)
[2019-02-20] MEDS: METHYL SALICYLATE/MENTHOL OINT 30 GM TUBE TP SCH (21:20)
[2019-02-20] MEDS: LIDOCAINE PATCH REMOVAL MC SCH (21:20)
[2019-02-21] MEDS: IBUPROFEN 600 MG TABLET (FP) PO PRN (01:31)
[2019-02-21] MEDS: GABAPENTIN 400 MG CAPSULE (FP) PO SCH (06:40)
[2019-02-21] MEDS: NICOTINE POLACRILEX 4 MG GUM BUC PRN (06:42)
[2019-02-21 06:53] VITALS: BP 142/75; PULSE 94; TEMP 97
[2019-02-21] MEDS ORDERED: LISINOPRIL 20 MG TABLET (FP) PO SCH (10:00)
== END 2019-02-21 07:15 | disposition home or self-care (01) | DRG 895 ==
LOC: YASAS 14:36 → Y3W 14:37
PROVIDERS: ADMIT Neuromusculoskeletal Medicine & OMM; ATTEND Neuromusculoskeletal Medicine & OMM
PROC: HZ42ZZZ Group Counseling for Substance Abuse Treatment, Cognitive-Behavioral (ICD-10-PCS; principal; 2019-02-12)
DX: F10.230 Alcohol dependence with withdrawal, uncomplicated (principal); F14.20 Cocaine dependence, uncomplicated; F17.210 Nicotine dependence, cigarettes, uncomplicated; F10.282 Alcohol dependence with alcohol-induced sleep disorder; F19.24 Other psychoactive substance dependence with psychoactive substance-induced mood disorder; F34.1 Dysthymic disorder; I10 Essential (primary) hypertension; M54.5 Low back pain; G89.29 Other chronic pain; R11.2 Nausea with vomiting, unspecified; E78.00 Pure hypercholesterolemia, unspecified; Z63.4 Disappearance and death of family member
CPT/HCPCS: 36415; 86704; 86706; 86803; 87389; Q0162

== ENCOUNTER 2019-04-06 09:08 | Inpatient (IN) | payer MEDICARE, OTHER | END 2019-04-10 12:33 | disposition home or self-care (01) | LOC: YASAS 09:08 → Y3N 12:30 ==

== ENCOUNTER 2019-09-14 14:40 | Inpatient (IN) | payer OTHER ==
[2019-09-14 16:19] VITALS: BMI 26.1
--- NOTE | 2019-09-14 17:54 | HP ---
"CIWA Score Nausea/Vomitin-No Nausea/No Vomiting Muscle Tremors: 2 Anxiety: 4-Mod. Anxious/Guarded Agitation: 4-Moderately Restless Paroxysmal Sweats: No Perspiration Orientation: 0-Oriented Tacttile Disturbances: 1-Very Mild Itch/Numbness Auditory Disturbances: 0-None Visual Disturbances: 0-None Headache: 0-None Present CIWA-Ar Total Score: 11 - Admission Criteria OASAS Guidelines: Admission for Medically Managed Detox: Requires at least one of the followin. CIWA greater than 12 2. Seizures within the past 24 hours 3. Delirium tremens within the past 24 hours 4. Hallucinations within the past 24 hours 5. Acute intervention needed for co occurring medical disorder 6. Acute intervention needed for co occurring psychiatric disorder 7. Severe withdrawal that cannot be handled at a lower level of care (continued vomiting, continued diarrhea, abnormal vital signs) requiring intravenous medication and/or fluids 8. Admitting History and Physical - Smoking History Smoking history: Current every day smoker Have you smoked in the past 12 months: Yes Aproximately how many cigarettes per day: 40 - Alcohol/Substance Use Hx Alcohol Use: Yes Admission ROS [facility] Allergies/Adverse Reactions: Allergies Allergy/AdvReac Type Severity Reaction Status Date / Time No Known Allergies Allergy Verified 09/14/19 16:10 History of Present Illness: pt here requesting detox from etoh use , reports 1/4 liquor x 2 months , denies seizures or blackouts, + tremors , latest use 2 days ago . Pt is poor historian , hostile and beligerant w/staff . cocaine - not daily tobacco - daily cannabis - daily pmhx : htn , meds verified w/ pharmacy Lisinopril/hctz 20/12.5 mg latest rx 2018. This report was requested by: Jazz Prather | Reference #: [id number] Others' Prescriptions Patient Name: Sumeet Torres Date: 1955 Address: [address] [place] [address] Sex: Male Rx Written Rx Dispensed Drug Quantity Days Supply Prescriber Name 08/08/2019 08/08/2019 oxycodone-acetaminophen 10-325 mg tab 56 28 Jimmie Hollowayadimir 07/10/2019 07/10/2019 oxycodone-acetaminophen 10-325 mg tab 58 14 Jimmie Hollowayadimir 06/12/2019 06/12/2019 oxycodone-acetaminophen 10-325 mg tab 58 14 Jewel, Jt 05/13/2019 05/13/2019 oxycodone-acetaminophen 10-325 mg tab 60 15 Jewel, Tj 04/01/2019 04/01/2019 oxycodone-acetaminophen 10-325 mg tab 60 15 Jimmie Hollowayadimir 03/05/2019 03/05/2019 oxycodone-acetaminophen 10-325 mg tab 60 15 Jewel, Tj 03/05/2019 03/05/2019 fentanyl 12 mcg/hr patch 10 30 Richie Hollowaymir Patient Name: Sumeet Torres Date: 1955 Address: [address] [place] [address] Sex: Male Rx Written Rx Dispensed Drug Quantity Days Supply Prescriber Name 02/21/2019 04/21/2019 zolpidem tartrate 10 mg tablet 30 30 Harika Hathaway MD 02/21/2019 03/22/2019 zolpidem tartrate 10 mg tablet 30 30 Harika Hathaway MD 02/21/2019 02/22/2019 alprazolam 2 mg tablet 60 30 Harika Hathaway MD 02/21/2019 02/22/2019 zolpidem tartrate 10 mg tablet 30 30 Harika Hathaway MD 01/10/2019 01/17/2019 alprazolam 2 mg tablet 60 30 Harika Hathaway MD 11/12/2018 01/10/2019 zolpidem tartrate 10 mg tablet 30 30 Harika Hathaway MD 11/12/2018 12/18/2018 zolpidem tartrate 10 mg tablet 30 30 Harika Hathaway MD 12/17/2018 12/18/2018 alprazolam 2 mg tablet 60 30 Harika Hathaway MD 11/12/2018 11/12/2018 zolpidem tartrate 10 mg tablet 30 30 Harika Hathaway MD 11/12/2018 11/12/2018 alprazolam 2 mg tablet 60 30 Harika Hathaway MD 09/20/2018 09/21/2018 alprazolam 2 mg tablet 60 30 Harika Hathaway MD 09/20/2018 09/21/2018 zolpidem tartrate 10 mg tablet 30 30 Harika Hathaway MD Patient Name: Sumeet Torres Date: 1955 Address: [address] [facility] [address] [place] [address] Sex: Male Rx Written Rx Dispensed Drug Quantity Days Supply Prescriber Name 02/05/2019 02/05/2019 oxycodone-acetaminophen 10-325 mg tab 28 7 Romanayden, Tj 02/05/2019 02/05/2019 clonazepam 0.5 mg tablet 60 30 Shanon Villegas MD Patient Name: Sumeet Torres Date: 1955 Address: [address] [place] [address] Sex: Male Rx Written Rx Dispensed Drug Quantity Days Supply Prescriber Name 01/03/2019 01/03/2019 diazepam 5 mg tablet 10 3 Anjum Garcia Adam () 01/01/2019 01/01/2019 oxycodone-acetaminophen 5-325 mg tablet 6 2 [facility] 12/17/2018 12/17/2018 oxycodone-acetaminophen 5-325 mg tablet 7 2 [facility] Patient Name: Sumeet Torres Date: 1955 Address: [address] [place] [address] Sex: Male Rx Written Rx Dispensed Drug Quantity Days Supply Prescriber Name 11/26/2018 11/26/2018 acetaminophen-cod #3 tablet 60 30 Abner Smiley K Patient Name: Sumeet Torres Date: 1955 Address: [address] [place] [address] Sex: Male Rx Written Rx Dispensed Drug Quantity Days Supply Prescriber Name 10/08/2018 10/17/2018 clonazepam 0.5 mg tablet 90 30 Shanon Villegas MD 10/10/2018 10/10/2018 oxycodone-acetaminophen 10-325 mg tab 60 15 Romanayden, Tj 09/17/2018 09/17/2018 clonazepam 0.5 mg tablet 60 30 Shanon Villegas MD Exam Limitations: Clinical Condition - Ebola screening Have you traveled outside of the country in the last 21 days: No (N) Have you had contact with anyone from an Ebola affected area: No Do you have a fever: No - Review of Systems Constitutional: Loss of Appetite, Unintentional Wgt. Loss EENT: reports: Other (glasses) Respiratory: reports: No Symptoms reported Cardiac: reports: No Symptoms Reported GI: reports: Poor Appetite : reports: No Symptoms Reported Musculoskeletal: reports: Back Pain (chronic , states plaaning L-spine surgery @ [facility] , right knee pain - chronic, ambulating w/ cane) Integumentary: reports: No Symptoms Reported Neuro: reports: See HPI Endocrine: reports: No Symptoms Reported Psychiatric: reports: Orientated x3, Agitated, Anxious Patient History - Patient Medical History Hx Anemia: No Hx Asthma: No Hx Chronic Obstructive Pulmonary Disease (COPD): No Hx Cancer: No Hx Cardiac Disorders: No Hx Congestive Heart Failure: No Hx Hypertension: Yes Hx Hypercholesterolemia: No (BY HX) Hx Pacemaker: No HX Cerebrovascular Accident: No Hx Seizures: No Hx Dementia: No Hx Diabetes: No Hx Gastrointestinal Disorders: No Hx Liver Disease: No Hx Genitourinary Disorders: No Hx Sexually Transmitted Disorders: No Hx Renal Disease (ESRD): No Hx Thyroid Disease: No Hx Human Immunodeficiency Virus (HIV): No (last 02/12 negative) Hx Hepatitis C: No Hx Depression: No Hx Suicide Attempt: No Hx Bipolar Disorder: No Hx Schizophrenia: No - Patient Surgical History Past Surgical History: No Hx Neurologic Surgery: No Hx Cataract Extraction: No Hx Cardiac Surgery: No Hx Lung Surgery: No Hx Breast Surgery: No Hx Breast Biopsy: No Hx Abdominal Surgery: No Hx Appendectomy: No Hx Cholecystectomy: No Hx Genitourinary Surgery: No Hx Section: No Hx Orthopedic Surgery: No Anesthesia Reaction: No - PPD History Date: 02/11/19 Results: 0 mm - Reproductive History Patient : No - Smoking Cessation Smoking history: Current every day smoker Have you smoked in the past 12 months: Yes Aproximately how many cigarettes per day: 40 Cigars Per Day: 0 Hx Chewing Tobacco Use: No Initiated information on smoking cessation: No - Substances abused Alcohol Substance route: Oral Frequency: Daily Amount used: quart of vodka Age of first use: 18 Date of last use: 09/12/19 Marijuana/Hashish Substance route: Smoking Frequency: Daily Amount used: 30 dollars/ week Age of first use: 25 Date of last use: 09/14/19 Admission Physical Exam BHS - Vital Signs Vital Signs: Vital Signs - 24 hr 09/14/19 16:10 Temperature 97.9 F Pulse Rate 81 Respiratory 16 Rate Blood Pressure 128/76 - Physical General Appearance: Yes: Mild Distress, Tremorous, Irritable, Anxious HEENTM: Yes: EOMI, Hearing grossly Normal, Normocephalic, Muffled/Hoarse Voice Respiratory: Yes: Chest Non-Tender, Lungs Clear, Normal Breath Sounds, No Respiratory Distress, No Accessory Muscle Use Neck: Yes: No masses,lesions,Nodules, Trachea in good position Cardiology: Yes: Regular Rhythm, Regular Rate, S1, S2 Abdominal: Yes: Non Tender, Soft Musculoskeletal: Yes: Other (unsteady gait , ambulating w/ cane) Extremities: Yes: Normal Range of Motion, Non-Tender Neurological: Yes: Fully Oriented, Alert, Motor Strength 5/5 Integumentary: Yes: Warm - Diagnostic (1) Alcohol dependence with uncomplicated withdrawal Current Visit: Yes Status: Chronic (2) Nicotine dependence Current Visit: Yes Status: Chronic Qualifiers: Nicotine product type: cigarettes (3) Cannabis use disorder, mild, abuse Current Visit: Yes Status: Chronic (4) Cocaine dependence, episodic use Current Visit: Yes Status: Chronic Breathalyzer - Breathalyzer Breathalyzer: 0 Urine Drug Screen - Test Device Lot number: [id number] Expiration date: 11/24/20 - Control Is test valid?: Yes - Results Drug screen NEGATIVE: No Urine drug screen results: THC-Marijuana, HELLEN-Cocaine Inpatient Rehab Admission - Rehab Decision to Admit Inpatient rehab admission?: No"
[2019-09-14] MEDS ORDERED: hydrOXYzine PAMOATE 25 MG CAPSULE (FP) PO PRN (17:55)
[2019-09-14] MEDS ORDERED: BISMUTH SUBSALICYLATE 524 MG/30 ML UD PO PRN (17:55)
[2019-09-14] MEDS ORDERED: MAGNESIUM HYDROX 2400MG/30ML ORAL SUSPENSION 30 ML CUP PO PRN (17:55)
[2019-09-14] MEDS ORDERED: IBUPROFEN 400 MG TABLET (FP) PO PRN (17:55)
[2019-09-14] MEDS ORDERED: MAGNESIUM CITRATE 300 ML BOTTLE PO PRN (17:55)
[2019-09-14] MEDS ORDERED: MAG HYDROX/AL HYDROX/SIMETH 30 ML UNIT-DOSE CUP PO PRN (17:55)
[2019-09-14] MEDS ORDERED: ACETAMINOPHEN 325 MG TABLET (FP) PO PRN ×2 (17:55)
[2019-09-14] MEDS ORDERED: MENTHOL/PHENOL 1 EACH UD MM PRN (17:55)
[2019-09-14] MEDS ORDERED: diazePAM 5 MG TABLET PO PRN (17:59)
[2019-09-14] MEDS ORDERED: diazePAM 5 MG TABLET PO ONE (17:59)
[2019-09-14] MEDS ORDERED: NICOTINE POLACRILEX 2 MG GUM BUC PRN (18:52)
[2019-09-14] MEDS ORDERED: MELATONIN 5 MG TABLETS PO PRN (22:00)
[2019-09-14] MEDS: diazePAM 5 MG TABLET PO SCH (22:45)
[2019-09-14] MEDS: THIAMINE HCL 100 MG TABLET (FP) PO SCH (22:46)
[2019-09-15] MEDS: diazePAM 5 MG TABLET PO SCH ×3 (05:45→22:26)
[2019-09-15] MEDS: PRENATAL VITAMINS W/ FOLIC ACID TABLET (FP) PO SCH (10:16)
[2019-09-15] MEDS: LISINOPRIL 20 MG TABLET (FP) PO SCH (10:16)
[2019-09-15] MEDS: HYDROCHLOROTHIAZIDE 12.5 MG CAPSULE (FP) PO SCH (10:16)
--- NOTE | 2019-09-15 11:53 | PN ---
S CIWA - CIWA Score Nausea/Vomitin-Mild Nausea/No Vomiting Muscle Tremors: 3 Anxiety: 3 Agitation: 3 Paroxysmal Sweats: 2 Orientation: 0-Oriented Tacttile Disturbances: 0-None Auditory Disturbances: 0-None Visual Disturbances: 0-None Headache: 0-None Present CIWA-Ar Total Score: 12 S Progress Note (SOAP) Subjective: 63 years old male admitted on 09/14/19 for alcohol withdrawal sx management treating with valium detox regimen ambulating with cane steady gait ate breakfast and lunch tolerated food and fluid well Objective: 09/15/19 11:52 Vital Signs Temperature 97.2 F L 09/15/19 09:40 Pulse Rate 70 09/15/19 09:40 Respiratory Rate 18 09/15/19 09:40 Blood Pressure 139/72 09/15/19 09:40 O2 Sat by Pulse Oximetry (%) 09/15/19 11:52 lab pending Assessment: 09/15/19 11:53 alcohol withdrawal Plan: valium regimen
[2019-09-15 12:34] LABS: HEMATOCRIT 41.3 % (35.4-49); HEMOGLOBIN 13.5 GM/dL (11.7-16.9); MCH 31.7 pg (25.7-33.7); MCHC 32.8 g/dl (32.0-35.9); MEAN CELL VOLUME 96.9 fl (80-96); MEAN PLT VOLUME 9.1 fl (7.5-11.1); PLATELET COUNT 169 K/MM3 (134-434); RBC 4.26 M/mm3 (4.00-5.60); RDW 14.6 % (11.9-15.9); WHITE BLOOD COUNT 8.3 K/mm3 (4.0-10.0)
[2019-09-15 12:40] LABS: ALBUMIN 3.6 g/dl (3.4-5.0); BILIRUBIN,TOTAL 0.7 mg/dL (0.2-1); BLOOD UREA NITROGEN 24.8 mg/dL (7-18); CALCIUM 8.7 mg/dL (8.5-10.1); CREATININE 1.3 mg/dL (0.55-1.3); POTASSIUM 4.2 mmol/L (3.5-5.1); TOT PROT 6.8 g/dl (6.4-8.2)
[2019-09-15] MEDS: THIAMINE HCL 100 MG TABLET (FP) PO SCH (22:26)
[2019-09-16] MEDS ORDERED: diazePAM 5 MG TABLET PO SCH (06:00)
[2019-09-16] MEDS ORDERED: chlordiazePOXIDE HCL 25 MG CAPSULE PO PRN (09:58)
[2019-09-16] MEDS ORDERED: chlordiazePOXIDE HCL 10 MG CAPSULE PO SCH ×2 (10:00→10:02)
[2019-09-16] MEDS ORDERED: TRIMETHOBENZAMIDE HCL 200MG/2ML INJ IM ONE (10:03)
--- NOTE | 2019-09-16 10:04 | PN ---
[facility] CIWA - CIWA Score Nausea/Vomitin Muscle Tremors: 1-None Visible, but [place] Anxiety: 2 Agitation: 0-Normal Activity Paroxysmal Sweats: 1-Minimal Palms Moist Orientation: 0-Oriented Tacttile Disturbances: 0-None Auditory Disturbances: 0-None Visual Disturbances: 0-None Headache: 0-None Present CIWA-Ar Total Score: 7 S Progress Note (SOAP) Subjective: 63 years old male admitted on 09/14/19 for alcohol withdrawal sx management treating with valium detox regiment reports vomiting after breakfast from taking valium discontinue valium regimen replaced by librium tigan 200 mg IM x 1 librium 10 mg po x 1 around 2 pm today discontinue motrn begin pepcid 20 mg po bid health teaching on alcohol related GI insults Objective: 09/16/19 10:08 Vital Signs Temperature 99.0 F 09/16/19 09:19 Pulse Rate 70 09/16/19 09:19 Respiratory Rate 18 09/16/19 09:19 Blood Pressure 139/75 09/16/19 09:19 O2 Sat by Pulse Oximetry (%) Laboratory Last Values WBC 8.3 K/mm3 (4.0-10.0) 09/15/19 07:25 RBC 4.26 M/mm3 (4.00-5.60) 09/15/19 07:25 Hgb 13.5 GM/dL (11.7-16.9) 09/15/19 07:25 Hct 41.3 % (35.4-49) 09/15/19 07:25 MCV 96.9 fl (80-96) H 09/15/19 07:25 MCH 31.7 pg (25.7-33.7) 09/15/19 07:25 MCHC 32.8 g/dl (32.0-35.9) 09/15/19 07:25 RDW 14.6 % (11.9-15.9) 09/15/19 07:25 Plt Count 169 K/MM3 (134-434) D 09/15/19 07:25 MPV 9.1 fl (7.5-11.1) 09/15/19 07:25 Sodium 140 mmol/L (136-145) 09/15/19 07:25 Potassium 4.2 mmol/L (3.5-5.1) 09/15/19 07:25 Chloride 109 mmol/L (98-107) H 09/15/19 07:25 Carbon Dioxide 24 mmol/L (21-32) 09/15/19 07:25 Anion Gap 7 MMOL/L (8-16) L 09/15/19 07:25 BUN 24.8 mg/dL (7-18) H 09/15/19 07:25 Creatinine 1.3 mg/dL (0.55-1.3) 09/15/19 07:25 Est GFR (CKD-EPI)AfAm 67.30 09/15/19 07:25 Est GFR (CKD-EPI)NonAf 58.07 09/15/19 07:25 Random Glucose 126 mg/dL (74-106) H 09/15/19 07:25 Calcium 8.7 mg/dL (8.5-10.1) 09/15/19 07:25 Total Bilirubin 0.7 mg/dL (0.2-1) 09/15/19 07:25 AST 18 U/L (15-37) 09/15/19 07:25 ALT 19 U/L (13-61) 09/15/19 07:25 Alkaline Phosphatase 67 U/L (45-117) 09/15/19 07:25 Total Protein 6.8 g/dl (6.4-8.2) 09/15/19 07:25 Albumin 3.6 g/dl (3.4-5.0) 09/15/19 07:25 RPR Titer Nonreactive (NONREACTIVE) 09/15/19 07:25 lab noted Assessment: 09/16/19 10:09 alcohol withdrawal Plan: librium regiment
[2019-09-16] MEDS: PRENATAL VITAMINS W/ FOLIC ACID TABLET (FP) PO SCH (10:20)
[2019-09-16] MEDS: HYDROCHLOROTHIAZIDE 12.5 MG CAPSULE (FP) PO SCH (10:20)
[2019-09-16] MEDS: LISINOPRIL 20 MG TABLET (FP) PO SCH (10:20)
[2019-09-16] MEDS: FAMOTIDINE 20 MG TABLET PO SCH ×2 (11:28→22:37)
[2019-09-16] MEDS ORDERED: chlordiazePOXIDE HCL 10 MG CAPSULE PO ONE (14:00)
[2019-09-16] MEDS: THIAMINE HCL 100 MG TABLET (FP) PO SCH (22:37)
[2019-09-17] MEDS ORDERED: chlordiazePOXIDE HCL 10 MG CAPSULE PO ONE (05:00)
[2019-09-17] MEDS ORDERED: diazePAM 5 MG TABLET PO ONE (06:00)
[2019-09-17 06:10] VITALS: BP 135/75; PULSE 76; TEMP 97.6
--- NOTE | 2019-09-17 08:24 | DS ---
[facility] Detox Discharge Summary Admission Date: 09/14/19 Discharge Date: 09/17/19 - History Present History: Alcohol Dependence Additional Comments: 63 years old male admitted on 09/14/19 for alcohol withdrawal sx management treated with librium detox regiment walking out the detox unit today refuses to have conversation with the staff case discussed with the property security that the patient walked directly to the property holding station and collected personal belonging and left the chemical dependent treatment facility - Physical Exam Results Vital Signs: Vital Signs Temperature 97.6 F 09/17/19 06:09 Pulse Rate 76 09/17/19 06:09 Respiratory Rate 18 09/17/19 06:09 Blood Pressure 135/75 09/17/19 06:09 O2 Sat by Pulse Oximetry (%) Pertinent Admission Physical Exam Findings: alcohol withdrawal Laboratory Last Values WBC 8.3 K/mm3 (4.0-10.0) 09/15/19 07:25 RBC 4.26 M/mm3 (4.00-5.60) 09/15/19 07:25 Hgb 13.5 GM/dL (11.7-16.9) 09/15/19 07:25 Hct 41.3 % (35.4-49) 09/15/19 07:25 MCV 96.9 fl (80-96) H 09/15/19 07:25 MCH 31.7 pg (25.7-33.7) 09/15/19 07:25 MCHC 32.8 g/dl (32.0-35.9) 09/15/19 07:25 RDW 14.6 % (11.9-15.9) 09/15/19 07:25 Plt Count 169 K/MM3 (134-434) D 09/15/19 07:25 MPV 9.1 fl (7.5-11.1) 09/15/19 07:25 Sodium 140 mmol/L (136-145) 09/15/19 07:25 Potassium 4.2 mmol/L (3.5-5.1) 09/15/19 07:25 Chloride 109 mmol/L (98-107) H 09/15/19 07:25 Carbon Dioxide 24 mmol/L (21-32) 09/15/19 07:25 Anion Gap 7 MMOL/L (8-16) L 09/15/19 07:25 BUN 24.8 mg/dL (7-18) H 09/15/19 07:25 Creatinine 1.3 mg/dL (0.55-1.3) 09/15/19 07:25 Est GFR (CKD-EPI)AfAm 67.30 09/15/19 07:25 Est GFR (CKD-EPI)NonAf 58.07 09/15/19 07:25 Random Glucose 126 mg/dL (74-106) H 09/15/19 07:25 Calcium 8.7 mg/dL (8.5-10.1) 09/15/19 07:25 Total Bilirubin 0.7 mg/dL (0.2-1) 09/15/19 07:25 AST 18 U/L (15-37) 09/15/19 07:25 ALT 19 U/L (13-61) 09/15/19 07:25 Alkaline Phosphatase 67 U/L (45-117) 09/15/19 07:25 Total Protein 6.8 g/dl (6.4-8.2) 09/15/19 07:25 Albumin 3.6 g/dl (3.4-5.0) 09/15/19 07:25 RPR Titer Nonreactive (NONREACTIVE) 09/15/19 07:25 lab noted - Treatment Hospital Course: Detox Protocol Followed Patient has Accepted a Rehab Referral to: community support approach - Medication Discharge Medications: Ambulatory Orders Hydrochlorothiazide 25 mg PO DAILY #30 tab 02/20/19 Lisinopril [Prinivil -] 40 mg PO DAILY #30 tab 02/20/19 - Diagnosis (1) Alcohol dependence with uncomplicated withdrawal Status: Acute (2) Hypertension Status: Chronic Qualifiers: Hypertension type: essential hypertension (3) Nicotine dependence Status: Acute Qualifiers: Nicotine product type: cigarettes Substance use status: in withdrawal Qualified Code(s): F17.213 - Nicotine dependence, cigarettes, with withdrawal (4) Use of cane as ambulatory aid Status: Chronic (5) Substance induced mood disorder Status: Suspected - AMA Did Patient Leave Against Medical Advice: Yes
== END 2019-09-17 08:04 | disposition left against medical advice (07) | DRG 894 ==
LOC: YASAS 14:40 → Y3N 16:42 → UNDOADMIN 16:42 → Y3N 17:46
PROVIDERS: ADMIT Allergy & Immunology; ATTEND Allergy & Immunology
PROC: HZ2ZZZZ Detoxification Services for Substance Abuse Treatment (ICD-10-PCS; principal; 2019-09-14)
DX: F10.230 Alcohol dependence with withdrawal, uncomplicated (principal); F14.20 Cocaine dependence, uncomplicated; F12.20 Cannabis dependence, uncomplicated; F17.213 Nicotine dependence, cigarettes, with withdrawal; F19.24 Other psychoactive substance dependence with psychoactive substance-induced mood disorder; I10 Essential (primary) hypertension; Z99.89 Dependence on other enabling machines and devices
CPT/HCPCS: 36415; 80053; 85027; 86593

== ENCOUNTER 2021-10-10 11:39 | Inpatient (IN) | payer BC, OTHER ==
[2021-10-10] MEDS ORDERED: ACETAMINOPHEN 325 MG TABLET (FP) PO PRN ×2 (12:19)
[2021-10-10] MEDS ORDERED: MAG HYDROX/AL HYDROX/SIMETH 30 ML UNIT-DOSE CUP PO PRN (12:19)
[2021-10-10] MEDS ORDERED: MAGNESIUM HYDROX 2400MG/30ML ORAL SUSPENSION 30 ML CUP PO PRN (12:19)
[2021-10-10] MEDS ORDERED: MAGNESIUM CITRATE 300 ML BOTTLE PO PRN (12:19)
[2021-10-10] MEDS ORDERED: IBUPROFEN 400 MG TABLET (FP) PO PRN (12:19)
[2021-10-10] MEDS ORDERED: BISMUTH SUBSALICYLATE 262 MG/15 ML BTL PO PRN (12:19)
[2021-10-10] MEDS ORDERED: LOPERAMIDE HCL 2 MG CAPSULE PO PRN (12:19)
[2021-10-10] MEDS ORDERED: chlordiazePOXIDE HCL 25 MG CAPSULE PO PRN (12:19)
[2021-10-10] MEDS ORDERED: ONDANSETRON *ODT* 4 MG TABLET SL PRN (12:19)
[2021-10-10] MEDS ORDERED: MENTHOL/PHENOL 1 EACH UD MM PRN (12:19)
[2021-10-10 12:34] VITALS: BMI 25.7
[2021-10-10] MEDS ORDERED: NICOTINE POLACRILEX 4 MG GUM BUC PRN (13:24)
[2021-10-10] MEDS ORDERED: hydrOXYzine PAMOATE 25 MG CAPSULE (FP) PO SCH (14:00)
[2021-10-10] MEDS: PRENATAL VITAMINS W/ FOLIC ACID TABLET (FP) PO SCH (14:28)
[2021-10-10] MEDS: NICOTINE 14 MG/24 HOURS TOPICAL PATCH TD SCH (14:29)
[2021-10-10] MEDS: NICOTINE 10 MG CARTRIDGE (INHALER) IH PRN (14:44)
[2021-10-10] MEDS: hydrOXYzine PAMOATE 25 MG CAPSULE (FP) PO PRN (15:50)
[2021-10-10 16:13] LABS: HEMATOCRIT 40.1 % (35.4-49); HEMOGLOBIN 13.3 GM/dL (11.7-16.9); MCH 31.8 pg (25.7-33.7); MCHC 33.2 g/dl (32.0-35.9); MEAN CELL VOLUME 95.9 fl (80-96); MEAN PLT VOLUME 8.6 fl (7.5-11.1); PLATELET COUNT 274 10^3/uL (134-434); RBC 4.18 M/mm3 (4.00-5.60); WHITE BLOOD COUNT 9.4 K/mm3 (4.0-10.0)
[2021-10-10] MEDS ORDERED: chlordiazePOXIDE HCL 25 MG CAPSULE PO SCH (17:00)
[2021-10-10] MEDS: chlordiazePOXIDE HCL 25 MG CAPSULE PO SCH ×2 (17:30→22:27)
[2021-10-10] MEDS: THIAMINE HCL 100 MG TABLET (FP) PO SCH (22:27)
[2021-10-10] MEDS: MELATONIN 5 MG TABLETS PO SCH (22:27)
[2021-10-11 03:15] LABS: CALCIUM 8.7 mg/dL (8.5-10.1)
[2021-10-11 03:16] LABS: ALBUMIN 3.8 g/dl (3.4-5.0); BLOOD UREA NITROGEN 29.3 mg/dL (7-18)
[2021-10-11 03:19] LABS: CREATININE 1.2 mg/dL (0.55-1.3)
[2021-10-11 03:20] LABS: BILIRUBIN,TOTAL 0.4 mg/dL (0.2-1); TOT PROT 7.6 g/dl (6.4-8.2)
[2021-10-11] MEDS: chlordiazePOXIDE HCL 25 MG CAPSULE PO SCH (05:27)
[2021-10-11] MEDS ORDERED: diazePAM 5 MG TABLET PO PRN (09:29)
[2021-10-11] MEDS: NICOTINE 14 MG/24 HOURS TOPICAL PATCH TD SCH (10:49)
[2021-10-11] MEDS: PRENATAL VITAMINS W/ FOLIC ACID TABLET (FP) PO SCH (10:49)
[2021-10-11] MEDS: diazePAM 5 MG TABLET PO SCH ×3 (10:51→23:00)
[2021-10-11] MEDS: METHOCARBAMOL 500 MG TABLET PO PRN (18:57)
[2021-10-11] MEDS: MELATONIN 5 MG TABLETS PO SCH (23:00)
[2021-10-11] MEDS: THIAMINE HCL 100 MG TABLET (FP) PO SCH (23:00)
[2021-10-12] MEDS ORDERED: chlordiazePOXIDE HCL 25 MG CAPSULE PO SCH (05:00)
[2021-10-12] MEDS: diazePAM 5 MG TABLET PO SCH ×4 (05:31→23:22)
[2021-10-12] MEDS: METHOCARBAMOL 500 MG TABLET PO PRN (11:48)
[2021-10-12] MEDS: NICOTINE 14 MG/24 HOURS TOPICAL PATCH TD SCH (11:48)
[2021-10-12] MEDS: PRENATAL VITAMINS W/ FOLIC ACID TABLET (FP) PO SCH (11:48)
[2021-10-12] MEDS: MELATONIN 5 MG TABLETS PO SCH (23:21)
[2021-10-12] MEDS: THIAMINE HCL 100 MG TABLET (FP) PO SCH (23:22)
[2021-10-13] MEDS ORDERED: chlordiazePOXIDE HCL 10 MG CAPSULE PO PRN
[2021-10-13] MEDS ORDERED: chlordiazePOXIDE HCL 10 MG CAPSULE PO SCH (05:00)
[2021-10-13] MEDS: diazePAM 5 MG TABLET PO SCH ×3 (06:26→23:55)
[2021-10-13] MEDS: PRENATAL VITAMINS W/ FOLIC ACID TABLET (FP) PO SCH (10:59)
[2021-10-13] MEDS: NICOTINE 14 MG/24 HOURS TOPICAL PATCH TD SCH (10:59)
[2021-10-13] MEDS: NICOTINE 10 MG CARTRIDGE (INHALER) IH PRN (17:42)
[2021-10-13] MEDS: THIAMINE HCL 100 MG TABLET (FP) PO SCH (23:55)
[2021-10-13] MEDS: MELATONIN 5 MG TABLETS PO SCH (23:55)
[2021-10-14] MEDS ORDERED: chlordiazePOXIDE HCL 10 MG CAPSULE PO SCH (05:00)
[2021-10-14] MEDS ORDERED: diazePAM 5 MG TABLET PO SCH (06:00)
[2021-10-14 09:16] VITALS: BP 154/85; PULSE 92; TEMP 98
[2021-10-14] MEDS: PRENATAL VITAMINS W/ FOLIC ACID TABLET (FP) PO SCH (10:35)
[2021-10-14] MEDS: METHOCARBAMOL 500 MG TABLET PO PRN (10:35)
[2021-10-14] MEDS: hydrOXYzine PAMOATE 25 MG CAPSULE (FP) PO PRN (10:35)
[2021-10-14] MEDS: NICOTINE 14 MG/24 HOURS TOPICAL PATCH TD SCH (10:37)
[2021-10-15] MEDS ORDERED: chlordiazePOXIDE HCL 10 MG CAPSULE PO ONE (05:00)
[2021-10-15] MEDS ORDERED: diazePAM 5 MG TABLET PO ONE (06:00)
== END 2021-10-14 12:20 | disposition other institution (70) | DRG 897 ==
LOC: YASAS 11:39 → Y6N 13:11
PROVIDERS: ADMIT Allergy & Immunology; ATTEND Allergy & Immunology
PROC: HZ2ZZZZ Detoxification Services for Substance Abuse Treatment (ICD-10-PCS; principal; 2021-10-10)
DX: F10.230 Alcohol dependence with withdrawal, uncomplicated (principal); F34.1 Dysthymic disorder; F17.210 Nicotine dependence, cigarettes, uncomplicated; F12.10 Cannabis abuse, uncomplicated; I10 Essential (primary) hypertension; E78.00 Pure hypercholesterolemia, unspecified; M54.42 Lumbago with sciatica, left side; R26.89 Other abnormalities of gait and mobility; W06.XXXA Fall from bed, initial encounter; Y92.230 Patient room in hospital as the place of occurrence of the external cause; Z86.79 Personal history of other diseases of the circulatory system; Z99.89 Dependence on other enabling machines and devices
CPT/HCPCS: 36415; 80053; 84520; 85027; 86780; C9803; U0003; U0005

== ENCOUNTER 2021-10-13 01:07 | Emergency (ER) | payer BC, OTHER ==
[2021-10-13 01:30] VITALS: TEMP 98.2
[2021-10-13 01:35] VITALS: BP 168/90; PULSE 80; BMI 25.7
[2021-10-13 01:59] LABS: BASO % 0.8 % (0-2.0); EOS % 1.7 % (0-4.5); HEMATOCRIT 40.5 % (35.4-49); HEMOGLOBIN 13.2 GM/dL (11.7-16.9); LYMPH % 22.8 % (8-40); MCH 31.4 pg (25.7-33.7); MCHC 32.7 g/dl (32.0-35.9); MEAN CELL VOLUME 95.9 fl (80-96); MEAN PLT VOLUME 7.8 fl (7.5-11.1); MONO % 8.8 % (3.8-10.2); NEUT % 65.9 % (42.8-82.8); PLATELET COUNT 273 10^3/uL (134-434); RBC 4.22 M/mm3 (4.00-5.60); RDW 15.4 % (11.9-15.9); WHITE BLOOD COUNT 9.1 K/mm3 (4.0-10.0)
[2021-10-13 02:07] LABS: INR 0.93 (0.83-1.09); PROTHROMBIN TIME (PATIENT) 10.7 SEC (9.7-13.0)
[2021-10-13 02:10] LABS: ACTIVATED PTT 29.8 SECONDS (25.2-36.5)
[2021-10-13 02:26] LABS: CHLORIDE 111 mmol/L (98-107); SODIUM 136 mmol/L (136-145)
[2021-10-13 02:28] LABS: BLOOD UREA NITROGEN 26.6 mg/dL (7-18); CALCIUM 9.2 mg/dL (8.5-10.1)
[2021-10-13 02:29] LABS: CO2 27 mmol/L (21-32); GLUCOSE,RANDOM 83 mg/dL (74-106)
[2021-10-13 02:32] LABS: CREATININE 1.2 mg/dL (0.55-1.3)
[2021-10-13 02:33] LABS: BILIRUBIN,TOTAL 0.2 mg/dL (0.2-1); TOT PROT 7.8 g/dl (6.4-8.2)
[2021-10-13 02:35] LABS: ALK PHOS 65 U/L (45-117)
[2021-10-13 02:47] LABS: ANION GAP -2 MMOL/L (8-16); SGOT/AST 123 U/L (15-37); SGPT/ALT 22 U/L (13-61)
[2021-10-14 12:08] LABS: SARS-CoV-2 NAA Not Detected (Not Detected)
== END 2021-10-13 03:52 | disposition short-term general hospital (02) ==
LOC: JER 01:07
DX: M25.561 Pain in right knee (principal); R32 Unspecified urinary incontinence; W19.XXXA Unspecified fall, initial encounter
CPT/HCPCS: 36415; 71046-TC-FY; 73560-TC-RT-FY; 80053; 84484; 85025; 85610; 85730; 93005; 93010; 99285-25; C9803; U0003; U0005

== ENCOUNTER 2021-11-19 12:59 | Inpatient (IN) | payer OTHER ==
[2021-11-19 13:22] VITALS: BMI 28.0
[2021-11-19] MEDS ORDERED: MAGNESIUM CITRATE 300 ML BOTTLE PO PRN (13:50)
[2021-11-19] MEDS ORDERED: IBUPROFEN 400 MG TABLET (FP) PO PRN (13:50)
[2021-11-19] MEDS ORDERED: ACETAMINOPHEN 325 MG TABLET (FP) PO PRN ×2 (13:50)
[2021-11-19] MEDS ORDERED: MENTHOL/PHENOL 1 EACH UD MM PRN (13:50)
[2021-11-19] MEDS ORDERED: MAG HYDROX/AL HYDROX/SIMETH 30 ML UNIT-DOSE CUP PO PRN (13:50)
[2021-11-19] MEDS ORDERED: MAGNESIUM HYDROX 2400MG/30ML ORAL SUSPENSION 30 ML CUP PO PRN (13:50)
[2021-11-19] MEDS ORDERED: chlordiazePOXIDE HCL 25 MG CAPSULE PO PRN (13:50)
[2021-11-19] MEDS ORDERED: BISMUTH SUBSALICYLATE 524 MG/30 ML PO PRN (13:50)
[2021-11-19] MEDS ORDERED: ONDANSETRON *ODT* 4 MG TABLET SL PRN (13:50)
[2021-11-19] MEDS ORDERED: NICOTINE 10 MG CARTRIDGE (INHALER) IH PRN (13:50)
[2021-11-19] MEDS ORDERED: LOPERAMIDE HCL 2 MG CAPSULE PO PRN (13:50)
[2021-11-19] MEDS: hydrOXYzine PAMOATE 25 MG CAPSULE (FP) PO SCH ×3 (15:00→23:05)
[2021-11-19] MEDS: NICOTINE 21 MG/24 HOURS TOPICAL PATCH TD SCH (15:00)
[2021-11-19] MEDS: chlordiazePOXIDE HCL 25 MG CAPSULE PO SCH ×2 (17:32→23:05)
[2021-11-19] MEDS: MELATONIN 5 MG TABLETS PO SCH (23:05)
[2021-11-19] MEDS: THIAMINE HCL 100 MG TABLET (FP) PO SCH (23:05)
[2021-11-20] MEDS ORDERED: LORazepam 0.5 MG TABLET PO SCH ×2 (05:00→12:00)
[2021-11-20] MEDS: chlordiazePOXIDE HCL 25 MG CAPSULE PO SCH ×2 (05:10→11:56)
[2021-11-20] MEDS: hydrOXYzine PAMOATE 25 MG CAPSULE (FP) PO SCH ×5 (05:10→23:17)
[2021-11-20] MEDS: PRENATAL VITAMINS W/ FOLIC ACID TABLET (FP) PO SCH (11:11)
[2021-11-20] MEDS: LISINOPRIL 10 MG TABLET PO SCH (11:11)
[2021-11-20] MEDS: NICOTINE 21 MG/24 HOURS TOPICAL PATCH TD SCH (11:12)
[2021-11-20 11:54] LABS: CALCIUM 8.2 mg/dL (8.5-10.1)
[2021-11-20 11:55] LABS: ALBUMIN 3.1 g/dl (3.4-5.0); BLOOD UREA NITROGEN 16.6 mg/dL (7-18)
[2021-11-20] MEDS ORDERED: LORazepam 0.5 MG TABLET PO PRN (11:57)
[2021-11-20 11:58] LABS: CREATININE 1.2 mg/dL (0.55-1.3)
[2021-11-20 11:59] LABS: HEMATOCRIT 40.3 % (35.4-49); HEMOGLOBIN 13.4 GM/dL (11.7-16.9); MCH 31.6 pg (25.7-33.7); MCHC 33.3 g/dl (32.0-35.9); MEAN CELL VOLUME 94.9 fl (80-96); MEAN PLT VOLUME 8.1 fl (7.5-11.1); PLATELET COUNT 259 10^3/uL (134-434); RBC 4.25 M/mm3 (4.00-5.60); RDW 14.3 % (11.9-15.9); WHITE BLOOD COUNT 5.9 K/mm3 (4.0-10.0)
[2021-11-20 12:00] LABS: BILIRUBIN,TOTAL 0.5 mg/dL (0.2-1); TOT PROT 6.6 g/dl (6.4-8.2)
[2021-11-20] MEDS: amLODIPine BESYLATE 5 MG TABLET (FP) PO SCH (12:27)
[2021-11-20] MEDS: NICOTINE POLACRILEX 2 MG GUM BUC PRN (16:44)
[2021-11-20] MEDS: LORazepam 1 MG TABLET PO SCH ×2 (16:44→23:18)
[2021-11-20] MEDS: THIAMINE HCL 100 MG TABLET (FP) PO SCH (23:17)
[2021-11-20] MEDS: MELATONIN 5 MG TABLETS PO SCH (23:17)
[2021-11-21] MEDS ORDERED: chlordiazePOXIDE HCL 25 MG CAPSULE PO SCH (05:00)
[2021-11-21] MEDS: LORazepam 0.5 MG TABLET PO SCH ×4 (05:56→23:24)
[2021-11-21] MEDS: hydrOXYzine PAMOATE 25 MG CAPSULE (FP) PO SCH ×2 (05:56→10:44)
[2021-11-21] MEDS: PRENATAL VITAMINS W/ FOLIC ACID TABLET (FP) PO SCH (10:42)
[2021-11-21] MEDS: NICOTINE 21 MG/24 HOURS TOPICAL PATCH TD SCH (10:42)
[2021-11-21] MEDS: amLODIPine BESYLATE 5 MG TABLET (FP) PO SCH (11:39)
[2021-11-21] MEDS: LISINOPRIL 10 MG TABLET PO SCH (11:43)
[2021-11-21] MEDS: MELATONIN 5 MG TABLETS PO SCH (23:24)
[2021-11-21] MEDS: THIAMINE HCL 100 MG TABLET (FP) PO SCH (23:24)
[2021-11-22] MEDS ORDERED: chlordiazePOXIDE HCL 10 MG CAPSULE PO PRN
[2021-11-22] MEDS ORDERED: chlordiazePOXIDE HCL 10 MG CAPSULE PO SCH (05:00)
[2021-11-22] MEDS: LORazepam 0.5 MG TABLET PO SCH ×3 (05:32→23:09)
[2021-11-22] MEDS ORDERED: amLODIPine BESYLATE 5 MG TABLET (FP) PO SCH (10:00)
[2021-11-22] MEDS: LISINOPRIL 10 MG TABLET PO SCH (10:04)
[2021-11-22] MEDS: PRENATAL VITAMINS W/ FOLIC ACID TABLET (FP) PO SCH (10:04)
[2021-11-22] MEDS: METHOCARBAMOL 500 MG TABLET PO PRN ×2 (10:04→23:07)
[2021-11-22] MEDS: amLODIPine BESYLATE 10 MG TABLET (FP) PO SCH (10:04)
[2021-11-22] MEDS: NICOTINE 21 MG/24 HOURS TOPICAL PATCH TD SCH (10:06)
[2021-11-22] MEDS ORDERED: cloNIDine HCL 0.1 MG TABLET PO PRN (10:22)
[2021-11-22] MEDS: NICOTINE POLACRILEX 2 MG GUM BUC PRN (20:57)
[2021-11-22] MEDS ORDERED: LISINOPRIL 10 MG TABLET PO ONE (22:00)
[2021-11-22] MEDS: THIAMINE HCL 100 MG TABLET (FP) PO SCH (23:09)
[2021-11-22] MEDS: MELATONIN 5 MG TABLETS PO SCH (23:11)
[2021-11-23] MEDS ORDERED: chlordiazePOXIDE HCL 10 MG CAPSULE PO SCH (05:00)
[2021-11-23] MEDS: LORazepam 0.5 MG TABLET PO SCH ×2 (06:35→18:21)
[2021-11-23] MEDS: PRENATAL VITAMINS W/ FOLIC ACID TABLET (FP) PO SCH (11:17)
[2021-11-23] MEDS: amLODIPine BESYLATE 10 MG TABLET (FP) PO SCH (11:17)
[2021-11-23] MEDS: LISINOPRIL 20 MG TABLET PO SCH (11:17)
[2021-11-23] MEDS: NICOTINE 21 MG/24 HOURS TOPICAL PATCH TD SCH (11:17)
[2021-11-23] MEDS: THIAMINE HCL 100 MG TABLET (FP) PO SCH (23:46)
[2021-11-23] MEDS: MELATONIN 5 MG TABLETS PO SCH (23:46)
[2021-11-24] MEDS ORDERED: LORazepam 0.5 MG TABLET PO ONE (05:00)
[2021-11-24] MEDS ORDERED: chlordiazePOXIDE HCL 10 MG CAPSULE PO ONE (05:00)
[2021-11-24 10:01] VITALS: BP 141/75; PULSE 90; TEMP 97.7
[2021-11-24] MEDS: amLODIPine BESYLATE 10 MG TABLET (FP) PO SCH (10:56)
[2021-11-24] MEDS: LISINOPRIL 20 MG TABLET PO SCH (10:57)
[2021-11-24] MEDS: PRENATAL VITAMINS W/ FOLIC ACID TABLET (FP) PO SCH (10:57)
[2021-11-24] MEDS: NICOTINE 21 MG/24 HOURS TOPICAL PATCH TD SCH (10:58)
== END 2021-11-24 11:17 | disposition other institution (70) | DRG 897 ==
LOC: YASAS 12:59 → Y6N 14:13
PROVIDERS: ADMIT Allergy & Immunology; ATTEND Allergy & Immunology
PROC: HZ2ZZZZ Detoxification Services for Substance Abuse Treatment (ICD-10-PCS; principal; 2021-11-19)
DX: F10.230 Alcohol dependence with withdrawal, uncomplicated (principal); F14.20 Cocaine dependence, uncomplicated; F12.10 Cannabis abuse, uncomplicated; F17.210 Nicotine dependence, cigarettes, uncomplicated; I10 Essential (primary) hypertension; E78.00 Pure hypercholesterolemia, unspecified; M54.50 Low back pain, unspecified; Z99.89 Dependence on other enabling machines and devices
CPT/HCPCS: 36415; 80053; 85027; 86780; 87811; C9803-CS; J0735; U0003; U0005

== ENCOUNTER 2021-11-24 11:30 | Inpatient (IN) | payer OTHER ==
[2021-11-24] MEDS ORDERED: ACETAMINOPHEN 325 MG TABLET (FP) PO PRN (12:22)
[2021-11-24] MEDS ORDERED: guaiFENesin 200 MG/10 ML 10 ML UNIT-DOSE CUPS PO PRN (12:22)
[2021-11-24] MEDS ORDERED: P-EPHED 60MG/TRIPROLIDI 2.5MG TABLET PO PRN (12:22)
[2021-11-24] MEDS ORDERED: LOPERAMIDE HCL 2 MG CAPSULE PO PRN (12:22)
[2021-11-24] MEDS ORDERED: NICOTINE 10 MG CARTRIDGE (INHALER) IH PRN (12:22)
[2021-11-24] MEDS ORDERED: MAG HYDROX/AL HYDROX/SIMETH 30 ML UNIT-DOSE CUP PO PRN (12:22)
[2021-11-24] MEDS ORDERED: IBUPROFEN 400 MG TABLET (FP) PO PRN (12:22)
[2021-11-24] MEDS ORDERED: MAGNESIUM HYDROX 2400MG/30ML ORAL SUSPENSION 30 ML CUP PO PRN (12:22)
[2021-11-24] MEDS ORDERED: MENTHOL/PHENOL 1 EACH UD MM PRN (12:22)
[2021-11-24] MEDS ORDERED: MAGNESIUM CITRATE 300 ML BOTTLE PO PRN (12:22)
[2021-11-24] MEDS ORDERED: hydrOXYzine PAMOATE 25 MG CAPSULE (FP) PO PRN (12:29)
[2021-11-24] MEDS ORDERED: METHOCARBAMOL 500 MG TABLET PO SCH (14:00)
[2021-11-24] MEDS ORDERED: hydrOXYzine PAMOATE 25 MG CAPSULE (FP) PO SCH (14:00)
[2021-11-24] MEDS ORDERED: METHOCARBAMOL 500 MG TABLET PO PRN (14:42)
[2021-11-24] MEDS ORDERED: MELATONIN 5 MG TABLETS PO SCH (22:00)
[2021-11-24] MEDS ORDERED: THIAMINE HCL 100 MG TABLET (FP) PO SCH (22:00)
[2021-11-25 06:45] VITALS: BP 144/80; PULSE 82; TEMP 99
[2021-11-25] MEDS ORDERED: amLODIPine BESYLATE 10 MG TABLET (FP) PO SCH (10:00)
[2021-11-25] MEDS ORDERED: NICOTINE 7 MG/24 HOURS TOPICAL PATCH TD SCH (10:00)
[2021-11-25] MEDS ORDERED: PRENATAL VITAMINS W/ FOLIC ACID TABLET (FP) PO SCH (10:00)
[2021-11-25] MEDS ORDERED: LISINOPRIL 20 MG TABLET PO SCH (10:00)
== END 2021-11-25 14:30 | disposition left against medical advice (07) | DRG 894 ==
LOC: YASAS 11:30 → Y3W 11:31
PROVIDERS: ADMIT Allergy & Immunology; ATTEND Allergy & Immunology
PROC: HZ42ZZZ Group Counseling for Substance Abuse Treatment, Cognitive-Behavioral (ICD-10-PCS; principal; 2021-11-24)
DX: F11.20 Opioid dependence, uncomplicated (principal); F14.20 Cocaine dependence, uncomplicated; F10.20 Alcohol dependence, uncomplicated; F17.210 Nicotine dependence, cigarettes, uncomplicated; I10 Essential (primary) hypertension

== ENCOUNTER 2022-01-31 14:16 | Inpatient (IN) | payer OTHER ==
[2022-01-31 15:06] VITALS: BMI 23.3
[2022-01-31] MEDS ORDERED: MAGNESIUM HYDROX 2400MG/30ML ORAL SUSPENSION 30 ML CUP PO PRN (15:39)
[2022-01-31] MEDS ORDERED: MAG HYDROX/AL HYDROX/SIMETH 30 ML UNIT-DOSE CUP PO PRN (15:39)
[2022-01-31] MEDS ORDERED: BISMUTH SUBSALICYLATE 524 MG/30 ML PO PRN (15:39)
[2022-01-31] MEDS ORDERED: IBUPROFEN 400 MG TABLET (FP) PO PRN (15:39)
[2022-01-31] MEDS ORDERED: BENZOCAINE/MENTHOL (CHLORASEPTIC ) LOZENGE MM PRN (15:39)
[2022-01-31] MEDS ORDERED: ONDANSETRON *ODT* 4 MG TABLET SL PRN (15:39)
[2022-01-31] MEDS ORDERED: LOPERAMIDE HCL 2 MG CAPSULE PO PRN (15:39)
[2022-01-31] MEDS ORDERED: MAGNESIUM CITRATE 300 ML BOTTLE PO PRN (15:39)
[2022-01-31] MEDS ORDERED: IBUPROFEN 600 MG TABLET (FP) PO PRN (15:39)
[2022-01-31] MEDS ORDERED: ACETAMINOPHEN 325 MG TABLET (FP) PO PRN ×2 (15:39)
[2022-01-31] MEDS ORDERED: NICOTINE POLACRILEX 4 MG GUM BUC PRN (15:39)
[2022-01-31] MEDS ORDERED: DICYCLOMINE HCL 10 MG CAPSULE PO PRN (15:39)
[2022-01-31] MEDS ORDERED: NICOTINE 10 MG CARTRIDGE (INHALER) IH PRN (15:39)
[2022-01-31] MEDS: hydrOXYzine PAMOATE 25 MG CAPSULE (FP) PO SCH ×2 (19:10→23:40)
[2022-01-31] MEDS: PRENATAL VITAMINS W/ FOLIC ACID TABLET (FP) PO SCH (19:10)
[2022-01-31] MEDS: METHOCARBAMOL 500 MG TABLET PO PRN (19:10)
[2022-01-31] MEDS: NICOTINE 21 MG/24 HOURS TOPICAL PATCH TD SCH (19:11)
[2022-01-31] MEDS: MELATONIN 5 MG TABLETS PO SCH (23:40)
[2022-01-31] MEDS: THIAMINE HCL 100 MG TABLET (FP) PO SCH (23:40)
[2022-02-01] MEDS: hydrOXYzine PAMOATE 25 MG CAPSULE (FP) PO SCH (07:22)
[2022-02-01] MEDS ORDERED: chlordiazePOXIDE HCL 25 MG CAPSULE PO PRN (09:10)
[2022-02-01] MEDS ORDERED: hydrOXYzine PAMOATE 25 MG CAPSULE (FP) PO PRN (09:25)
[2022-02-01] MEDS ORDERED: LOPERAMIDE HCL 2 MG CAPSULE PO ONE (09:45)
[2022-02-01] MEDS ORDERED: IBUPROFEN 400 MG TABLET (FP) PO ONE (09:45)
[2022-02-01] MEDS: PRENATAL VITAMINS W/ FOLIC ACID TABLET (FP) PO SCH (12:17)
[2022-02-01] MEDS: LISINOPRIL 20 MG TABLET PO SCH (12:17)
[2022-02-01] MEDS: METHOCARBAMOL 500 MG TABLET PO PRN (12:17)
[2022-02-01] MEDS: amLODIPine BESYLATE 10 MG TABLET (FP) PO SCH (12:17)
[2022-02-01] MEDS: HYDROCHLOROTHIAZIDE 25 MG TABLET (FP) PO SCH (12:17)
[2022-02-01] MEDS: chlordiazePOXIDE HCL 25 MG CAPSULE PO SCH ×3 (12:18→22:27)
[2022-02-01] MEDS: NICOTINE 21 MG/24 HOURS TOPICAL PATCH TD SCH (12:18)
[2022-02-01] MEDS: MELATONIN 5 MG TABLETS PO SCH (22:27)
[2022-02-01] MEDS: THIAMINE HCL 100 MG TABLET (FP) PO SCH (22:27)
[2022-02-02] MEDS ORDERED: chlordiazePOXIDE HCL 25 MG CAPSULE PO SCH (05:00)
[2022-02-02 09:46] VITALS: TEMP 97.3
[2022-02-02] MEDS: NICOTINE 21 MG/24 HOURS TOPICAL PATCH TD SCH (11:19)
[2022-02-02] MEDS: HYDROCHLOROTHIAZIDE 25 MG TABLET (FP) PO SCH (11:19)
[2022-02-02] MEDS: PRENATAL VITAMINS W/ FOLIC ACID TABLET (FP) PO SCH (11:19)
[2022-02-02] MEDS: amLODIPine BESYLATE 10 MG TABLET (FP) PO SCH (11:19)
[2022-02-02] MEDS: LISINOPRIL 20 MG TABLET PO SCH (11:20)
[2022-02-02 11:44] LABS: HEMATOCRIT 44.9 % (35.4-49); HEMOGLOBIN 14.5 GM/dL (11.7-16.9); MCH 30.9 pg (25.7-33.7); MCHC 32.4 g/dl (32.0-35.9); MEAN CELL VOLUME 95.6 fl (80-96); MEAN PLT VOLUME 8.8 fl (7.5-11.1); PLATELET COUNT 283 10^3/uL (134-434); RDW 15.1 % (11.9-15.9); WHITE BLOOD COUNT 7.4 K/mm3 (4.0-10.0)
[2022-02-02 11:55] LABS: CALCIUM 9.4 mg/dL (8.5-10.1)
[2022-02-02 11:56] LABS: ALBUMIN 3.3 g/dl (3.4-5.0); BLOOD UREA NITROGEN 28.4 mg/dL (7-18)
[2022-02-02 11:58] LABS: CREATININE 1.3 mg/dL (0.55-1.3)
[2022-02-02 12:00] LABS: BILIRUBIN,TOTAL 0.5 mg/dL (0.2-1); TOT PROT 7.3 g/dl (6.4-8.2)
[2022-02-02 15:37] VITALS: BP 165/90; PULSE 97
[2022-02-02] MEDS ORDERED: chlordiazePOXIDE 5 MG CAPSULE PO SCH (17:00)
[2022-02-03] MEDS ORDERED: chlordiazePOXIDE HCL 10 MG CAPSULE PO PRN
[2022-02-03] MEDS ORDERED: chlordiazePOXIDE HCL 10 MG CAPSULE PO SCH (05:00)
[2022-02-04] MEDS ORDERED: chlordiazePOXIDE HCL 10 MG CAPSULE PO SCH (05:00)
[2022-02-05] MEDS ORDERED: chlordiazePOXIDE HCL 10 MG CAPSULE PO ONE (05:00)
== END 2022-02-02 17:48 | disposition left against medical advice (07) | DRG 894 ==
LOC: YASAS 14:16 → Y6N 18:01
PROVIDERS: ADMIT Allergy & Immunology; ATTEND Surgery
PROC: HZ2ZZZZ Detoxification Services for Substance Abuse Treatment (ICD-10-PCS; principal; 2022-01-31)
DX: F10.230 Alcohol dependence with withdrawal, uncomplicated (principal); F14.20 Cocaine dependence, uncomplicated; F12.10 Cannabis abuse, uncomplicated; F17.210 Nicotine dependence, cigarettes, uncomplicated; E78.5 Hyperlipidemia, unspecified; I10 Essential (primary) hypertension; R29.6 Repeated falls; Z99.89 Dependence on other enabling machines and devices
CPT/HCPCS: 36415; 80053; 85027; 86780; C9803-CS; U0003; U0005

== ENCOUNTER 2022-02-02 10:14 | Emergency (ER) | payer OTHER ==
[2022-02-02 10:38] VITALS: BP 134/77; PULSE 87; TEMP 98.6; BMI 23.2
[2022-02-02] MEDS ORDERED: ACETAMINOPHEN 500 MG TABLET (FP) PO ONE (10:54)
[2022-02-02] MEDS ORDERED: SODIUM CHLORIDE 0.9% 1000 ML INFUS.BAG IV ONE (11:07)
[2022-02-02] MEDS ORDERED: ACETAMINOPHEN 325 MG TABLET (FP) ONE (11:16)
[2022-02-02 12:03] LABS: BASO % 0.7 % (0-2.0); EOS % 1.6 % (0-4.5); HEMATOCRIT 46.8 % (35.4-49); LYMPH % 22.8 % (8-40); MCH 30.6 pg (25.7-33.7); MCHC 32.1 g/dl (32.0-35.9); MEAN CELL VOLUME 95.3 fl (80-96); MEAN PLT VOLUME 8.1 fl (7.5-11.1); MONO % 9.5 % (3.8-10.2); NEUT % 65.4 % (42.8-82.8); PLATELET COUNT 288 10^3/uL (134-434); RBC 4.91 M/mm3 (4.00-5.60); WHITE BLOOD COUNT 8.3 K/mm3 (4.0-10.0)
[2022-02-02 12:32] LABS: ALBUMIN 3.5 g/dl (3.4-5.0); CALCIUM 9.8 mg/dL (8.5-10.1)
[2022-02-02 12:33] LABS: BLOOD UREA NITROGEN 27.3 mg/dL (7-18)
[2022-02-02 12:35] LABS: CREATININE 1.3 mg/dL (0.55-1.3)
[2022-02-02 12:37] LABS: BILIRUBIN,TOTAL 0.3 mg/dL (0.2-1); TOT PROT 7.6 g/dl (6.4-8.2)
== END 2022-02-02 13:54 | disposition left against medical advice (07) ==
LOC: JER 10:14
DX: R42 Dizziness and giddiness (principal); M54.89 Other dorsalgia; W19.XXXA Unspecified fall, initial encounter
CPT/HCPCS: 36415; 70450-TC; 71045-TC-FY; 72125-TC; 80053; 82962; 84484; 85025; 93005; 93010; 99285-25